=== PATIENT | male | born 1930 | race Caucasian/White ===

== ENCOUNTER 2016-12-24 16:22 | Emergency (ER) | payer OTHER ==
[~2016-12-24] VITALS: Ht 177.8 cm; Wt 63.1 kg
[~2016-12-24 16:22] MED LIST: AMLO-110 PO; ASPEC81 PO; CLR10 PO; COEN1CAP17 PO; FLNIN/ NAE; LEVO50TA6 PO; LOSA1TAB PO; METO25TA3 PO; MULT-188 PO; MULT-845 PO; OMEG10002 PO; RANI300T PO; ROSU20TA PO; WARF-246 PO; WARF-280 PO
[2016-12-24 16:34] VITALS: TEMP 36.9; Ht 177.8 cm; Wt 63.1 kg
--- NOTE | 2016-12-24 17:50 | EMERGENCY ROOM VISIT NOTE ---
History Report prepared by Nik: Ashwini Sunshine Under the Supervision of: Dr. Joe Gould D.O. First contact with patient: 17:16 Chief Complaint: GI ASSESSMENT Stated Complaint: COUGHING BLOOD Nursing Triage Summary: went to urgent care, was sent to the er "I have been spitting up blood since this morning." on coumadin for CHF. recent inr 2.9 History of Present Illness The patient is a 86 year old male who presents to the Emergency Room with complaints of constant hematochezia beginning this morning. The patient states that he has been congested and has been coughing up small amounts of blood throughout the day. He reports that he is on Warfarin for atrial fibrillation and has a history of CHF, GERD, prostate surgery, hernia surgery, and cholecystectomy. He notes that he has been more tired, short of breath, and congested. The patient denies any chest pain, fever, leg swelling, leg pain, weight loss, weight gain, history of smoking, history of detention, history of living with someone with TB. He reports that the congestion is in his chest and he has blood when he spits up his phlegm. He has not been on any new medications and notes that his Coumadin level was checked last week and was normal. The patient notes that he did bite his tongue recently but states that it is not bleeding. Source of History: patient Onset: this morning Position: other (global) Quality: other (coughing blood) Timing: constant Associated Symptoms: + SOB, No fevers, No chest pain Note: He notes that he has been more tired and congested. The patient denies any leg swelling, leg pain, weight loss, weight gain, history of smoking, history of detention, history of living with someone with TB. Review of Systems See HPI for pertinent positives & negatives. A total of 10 systems reviewed and were otherwise negative. Past Medical & Surgical Medical Problems: (1) Atrial flutter (2) CKD (chronic kidney disease), stage III (3) Diastolic heart failure (4) DM type 2 (diabetes mellitus, type 2) (5) Dyslipidemia (6) GERD (gastroesophageal reflux disease) (7) Hypertension (8) LBBB (left bundle branch block) Surgical Problems: (1) History of hernia repair (2) History of tonsillectomy Family History Hypertension Social History Smoking Status: Never Smoker Alcohol Use: none Marital Status: Housing Status: lives alone Occupation Status: retired Current/Historical Medications Scheduled Amlodipine (Norvasc), 5 MG PO DAILY Aspirin (Aspirin EC Low Dose), 81 MG PO DAILY Cephalexin Monohydrate (Keflex), 500 MG PO QID Coenzyme Q10 (Ubidecarenone) (Co Q 10), 100 MG PO DAILY@1200 Finasteride (Finasteride), 5 MG PO DAILY@1200 Fluticasone Propionate (Fluticasone Propionate), 2 SPRAYS TEREZA DAILY Ipratropium [place] (Nasal) (Ipratropium [place]), 2 SPRAYS TEREZA BID Levothyroxine Sodium (Levothyroxine Sodium), 50 MCG PO DAILY Losartan Potassium (Cozaar), 25 MG PO DAILY Metoprolol Succ (Toprol Xl) (Toprol-Xl), 12.5 MG PO DAILY Multiple Vitamins W/ Minerals (Centrum Silver Adult 50+), 1 TAB PO DAILY Multiple Vitamins W/ Minerals (Ocuvite), 1 TAB PO DAILY Omeprazole (Prilosec), 20 MG PO DAILY Ranitidine Hcl (Zantac), 300 MG PO QPM Rosuvastatin Calcium (Crestor), 20 MG PO QPM Warfarin Sod (Jantoven), 7.5 MG PO 5XWK Warfarin Sodium (Warfarin Sodium), 5 MG PO 2XWK Allergies Coded Allergies: Dust (Unverified Allergy, Unknown, UNKNOWN, 12/24/16) Grass (Unverified Allergy, Unknown, UNKNOWN, 12/24/16) Molds and Smuts (Unverified Allergy, Unknown, UNKNOWN, 12/24/16) Penicillins (Unverified Allergy, Unknown, UNKNOWN-HAPPENED WHEN HE WAS CHILD, 12/24/16) Physical Exam Vital Signs Date Time Temp Pulse Resp B/P (MAP) Pulse Ox O2 Delivery O2 Flow Rate FiO2 12/24/16 21:48 88 18 130/80 95 12/24/16 21:03 81 17 94 Room Air 12/24/16 19:23 83 18 167/95 96 Room Air 12/24/16 18:02 79 12/24/16 17:58 96 Room Air 12/24/16 17:58 96 Room Air 12/24/16 16:34 36.9 83 18 160/75 98 Room Air Physical Exam GENERAL: Patient is awake, alert, and in no acute distress. Patient is resting comfortably and showing no signs of anxiety EYES: The conjunctivae are clear. The pupils are round and reactive. EARS, NOSE, MOUTH AND THROAT: The nose is without any evidence of any deformity. Mucous membranes are moist tongue is midline, scant blood noted in oropharynx, no active bleeding noted NECK: The neck is nontender and supple. RESPIRATORY: Lung sounds diminished in the left lung field, rales at both bases CARDIOVASCULAR: Regular rate and rhythm noted there no murmurs rubs or gallops normal S1 normal S2 GASTROINTESTINAL: The abdomen is soft. Bowel sounds are present in all quadrants. Abdomen is nontender MUSCULOSKELETAL/EXTREMITIES: There is no evidence of gross deformity full range of motion is noted in the hips and shoulders SKIN: There is no obvious evidence of any rash. There are no petechiae, pallor or cyanosis noted. NEUROLOGIC: Patient is awake alert and oriented x3 Medical Decision & Procedures ER Provider Diagnostic Interpretation: Radiology results as stated below per my review and radiologist interpretation: CHEST ONE VIEW PORTABLE FINDINGS: There is no pneumothorax or pleural effusion. There is no evidence of pulmonary edema. Patient is rotated. Mild cardiomegaly is noted. Linear left midlung opacity suggests atelectasis. IMPRESSION: 1. No acute cardiopulmonary findings. 2. Mild cardiomegaly. Electronically signed by: Edward Grimaldo M.D. 12/24/2016 6:13 PM Dictated Date/Time: 12/24/2016 6:[address] ANGIOGRAPHY OF THE CHEST, PULMONARY EMBOLUS PROTOCOL FINDINGS: No pulmonary emboli are identified. The heart is moderately enlarged. Mild dilatation of the ascending aorta measuring 4 cm is unchanged since CT of July 10, 2016. Sensitivity for detection of dissection is diminished given suboptimal opacification of the thoracic aorta. There is no evidence for dissection on this exam. There is extensive coronary artery calcification. No pneumothorax or pleural effusion is present. There is mild interlobular septal thickening. Ground glass opacities suggest atelectasis. Bony thorax is unremarkable. There is a probable 1.4 cm cystic lesion within the pancreatic tail. IMPRESSION: 1. No pulmonary emboli identified. 2. Findings suggestive of mild pulmonary edema. 2. Moderate cardiomegaly. Stable mild dilatation of the ascending aorta. 3. Suspected 1.4 cm cystic lesion within the pancreatic tail. This may reflect a side branch IPMN. A follow-up pancreas protocol CT in 6 months to ensure stability is recommended. Electronically signed by: Edward Grimaldo M.D. 12/24/2016 7:20 PM Dictated Date/Time: 12/24/2016 7:[address] NECK WITHOUT INTRAVENOUS CONTRAST FINDINGS: The visualized brain parenchyma and orbits are unremarkable. Symmetric bilateral lingual tonsillar hypertrophy. The epiglottis and prevertebral soft tissues are normal in thickness. The parotid and submandibular glands are symmetric. No significant cervical lymphadenopathy. Minimal calcified plaque within the bilateral carotid bifurcations. Bilateral hypodense thyroid nodules which measure 1.1 cm on the left and 7 mm on the right. No pneumothorax. Calcified right pleural plaques. No suspicious lytic or blastic osseous lesions. Degenerative changes within the cervical spine. No airway compromise. The visualized trachea is widely patent. Of note, evaluation for mass within the neck is suboptimal due to the lack of intravenous contrast. IMPRESSION: 1. No masses or lymphadenopathy within the neck. 2. Symmetric bilateral lingual tonsillar hypertrophy. 3. Small bilateral thyroid nodules as described above. Electronically signed by: Avinash Sharif M.D. 12/24/2016 7:23 PM Dictated Date/Time: 12/24/2016 7:15 PM Laboratory Results 12/24/16 17:43 Red Blood Count 4.79, Mean Corpuscular Volume 92.1, Mean Corpuscular Hemoglobin 29.6, Mean Corpuscular Hemoglobin Concent 32.2, Mean Platelet Volume 10.7, Neutrophils (%) (Auto) 65.1, Lymphocytes (%) (Auto) 21.3, Monocytes (%) (Auto) 12.7, Eosinophils (%) (Auto) 0.7, Basophils (%) (Auto) 0.2, Neutrophils # (Auto ) 3.55, Lymphocytes # (Auto) 1.16, Monocytes # (Auto) 0.69, Eosinophils # (Auto ) 0.04, Basophils # (Auto) 0.01 12/24/16 17:43 Test 12/24/16 17:43 12/24/16 18:25 White Blood Count 5.45 K/uL (4.8-10.8) Red Blood Count 4.79 M/uL (4.7-6.1) Hemoglobin 14.2 g/dL (14.0-18.0) Hematocrit 44.1 % (42-52) Mean Corpuscular Volume 92.1 fL (80-100) Mean Corpuscular Hemoglobin 29.6 pg (25-34) Mean Corpuscular Hemoglobin Concent 32.2 g/dl (32-36) Platelet Count 158 K/uL (130-400) Mean Platelet Volume 10.7 fL (7.4-10.4) Neutrophils (%) (Auto) 65.1 % Lymphocytes (%) (Auto) 21.3 % Monocytes (%) (Auto) 12.7 % Eosinophils (%) (Auto) 0.7 % Basophils (%) (Auto) 0.2 % Neutrophils # (Auto) 3.55 K/uL (1.4-6.5) Lymphocytes # (Auto) 1.16 K/uL (1.2-3.4) Monocytes # (Auto) 0.69 K/uL (0.11-0.59) Eosinophils # (Auto) 0.04 K/uL (0-0.5) Basophils # (Auto) 0.01 K/uL (0-0.2) RDW Standard Deviation 49.8 fL (36.4-46.3) RDW Coefficient of Variation 14.7 % (11.5-14.5) Immature Granulocyte % (Auto) 0.0 % Immature Granulocyte # (Auto) 0.00 K/uL (0.00-0.02) Prothrombin Time 32.2 SECONDS (9.0-12.0) Prothromb Time International Ratio 2.9 (0.9-1.1) Activated Partial Thromboplast Time 39.5 SECONDS (21.0-31.0) Partial Thromboplastin Ratio 1.5 Anion Gap 6.0 mmol/L (3-11) Est Creatinine Clear Calc Drug Dose 43.0 ml/min Estimated GFR () 70.1 Estimated GFR (Non- 60.5 BUN/Creatinine Ratio 21.4 (10-20) Calcium Level 8.6 mg/dl (8.5-10.1) Total Bilirubin 0.6 mg/dl (0.2-1) Aspartate Amino Transf (AST/SGOT) 36 U/L (15-37) Alanine Aminotransferase (ALT/SGPT) 35 U/L (12-78) Alkaline Phosphatase 63 U/L (45-117) Total Creatine Kinase 165 U/L (39-308) Creatine Kinase MB 3.4 ng/ml (0.5-3.6) Creatine Kinase MB Ratio 2.1 (0-3.0) Troponin I 0.021 ng/ml (0-0.045) Pro-B-Type Natriuretic Peptide 4934 pg/ml (0-1800) Total Protein 7.7 gm/dl (6.4-8.2) Albumin 4.1 gm/dl (3.4-5.0) Globulin 3.6 gm/dl (2.5-4.0) Albumin/Globulin Ratio 1.1 (0.9-2) Chemistry Specimen Hemolysis Urine Color YELLOW Urine Appearance CLEAR (CLEAR) Urine pH 7.0 (4.5-7.5) Urine Specific Bone Gap 1.021 (1.000-1.030) Urine Protein 1+ (NEG) Urine Glucose (UA) NEG (NEG) Urine Ketones NEG (NEG) Urine Occult Blood NEG (NEG) Urine Nitrite NEG (NEG) Urine Bilirubin NEG (NEG) Urine Urobilinogen NEG (NEG) Urine Leukocyte Esterase NEG (NEG) Urine WBC (Auto) 0 /hpf (0-5) Urine RBC (Auto) 0-4 /hpf (0-4) Urine Hyaline Casts (Auto) 0 /lpf (0-5) Urine Epithelial Cells (Auto) 0-5 /lpf (0-5) Urine Bacteria (Auto) NEG (NEG) Laboratory results per my review. Medications Administered Medications (Trade) Dose Ordered Sig/Anthony Route Start Time Stop Time Status Last Admin Dose Admin Cephalexin Monohydrate (Keflex 500MG Home Pack) 1 homepack NOW ONCE PO 12/24/16 21:15 12/24/16 21:16 DC 12/24/16 21:46 1 HOMEPACK Cephalexin Monohydrate (Keflex Cap) 500 mg NOW ONCE PO 12/24/16 21:15 12/24/16 21:16 DC 12/24/16 21:46 500 MG Tip of the tongue Total length: Less than 0.5 cm Complexity: Simple Verbal consent was obtained after the risks and benefits were explained, including but not limited to bleeding, scarring, infection, pain, and bone/joint /nerve damage. At this time, the risks of the procedure are less than the risks of NOT performing the procedure. The target area was anesthetized with 0.5 ml of 1% lidocaine with epinephrine. Copious irrigation was performed using normal saline solution. Debridement was not performed. The wound edges were approximated using 2, 6-0 simple interrupted absorbable sutures. Hemostasis and excellent approximation was achieved. No complications and the patient tolerated the procedure well. ECG Indication: weakness Rate (beats per minute): 90 Rhythm: sinus rhythm Findings: LBBB, PVC (frequent) Comparison ECG Date: 03/28/16 Change: no significant change ED Course 1715: The patient was evaluated in room C6. A complete history and physical examination were performed. 2029: Lidocaine/Epinephrine 20ml INFIL. 2106: I reevaluated and updated the patient. 2114: Keflex Cap 500mg PO, Keflex 500mg Home Pack 1 homepack PO. 2152: Upon reevaluation, the patient is doing well. I discussed the results and treatment plan with the patient. He verbalized agreement of the treatment plan. The patient was discharged home. Medical Decision Differential diagnosis: Etiologies such as infections, reactive airway disease, pneumonia, pneumothorax , COPD, CHF, cardiac ischemia, pulmonary embolism, musculoskeletal, gastrointestinal, as well as others were entertained. Nursing notes reviewed. Additional history is obtained from the patient's daughter. The patient is an 86-year-old male who presented to the emergency department for an evaluation of hemoptysis. The patient states that he was coughing up blood and he showed me on multiple occasions that he was bringing up sputum which appeared blood tinged but also chris blood at times. The patient had some nasal congestion as well as a sore throat but no definite source of bleeding was noted on direct observation however he had an area over the tip of his tongue which appeared to be oozing at times. The patient was seen at a [facility] and was sent to the emergency department for further evaluation of hemoptysis. Testing was obtained to ensure there is no source of bleeding in his oropharynx or an abnormality in his chest such as a pulmonary embolism or mass that was causing the bleeding. He had no risk factors for tuberculosis but I could identify. I discussed the patient's laboratory radiographic studies with him however on subsequent reevaluation I was able to notice that this area on his tongue appeared to be bleeding more. With direct pressure it did not seem to stop bleeding. This reason a small absorbable suture was placed in the laceration which appeared to stop the bleeding. I discussed the patient's laboratory radiographic studies with his daughter. He was encouraged to continue all medications as prescribed and follow-up with his doctor for reevaluation. He was also started on an antibiotic because of the placement of the oral sutures. He was also encouraged return to the emergency apartment immediately if symptoms change worsen or the need arises. Medication Reconcilliation Current Medication List: was personally reviewed by me Blood Pressure Screening Patient's blood pressure: Elevated blood pressure Blood pressure disposition: Elevated BP felt to be situational Impression Primary Impression: Tongue laceration Additional Impressions: Chest congestion rule out hemoptysis Scribe Attestation The scribe's documentation has been prepared under my direction and personally reviewed by me in its entirety. I confirm that the note above accurately reflects all work, treatment, procedures, and medical decision making performed by me. Departure Information Dispostion Home / Self-Care Prescriptions Cephalexin Monohydrate (KEFLEX) 500 Mg Cap 500 MG PO QID, #20 CAP Prov: Joe Gould, DO 12/24/16 Referrals Laura Mcmahon M.D. (PCP) Forms HOME CARE DOCUMENTATION FORM, IMPORTANT VISIT INFORMATION Patient Instructions ED Laceration Mouth, My [facility] Additional Instructions Continue all medications as prescribed. Continue to use Tylenol as directed for pain. Follow-up with your family tomorrow scheduled. Problem Qualifiers Primary Impression: Tongue laceration Encounter type: initial encounter Qualified Codes: S01.512A - Laceration without foreign body of oral cavity, initial encounter
[2016-12-24] MEDS ORDERED: LOSA1TAB PO (17:55)
[2016-12-24] MEDS ORDERED: WARF7.5T4 PO (17:57)
[2016-12-24 17:58] VITALS: O2SAT 96
[2016-12-24 17:58] LABS: BASO % 0.2 %; BASO ABS # 0.01 K/uL (0-0.2); COMPLETE YES; EOS % 0.7 %; HEMATOCRIT 44.1 % (42-52); LYMPH % 21.3 %; LYMPH ABS # 1.16 K/uL (1.2-3.4); MEAN CELL VOLUME 92.1 fL (80-100); MEAN CORPUSCULAR HEMOGLOBIN 29.6 pg (25-34); MEAN CORPUSCULAR HGB CONC 32.2 g/dl (32-36); MEAN PLATELET VOLUME 10.7 fL (7.4-10.4); MONO % 12.7 %; NEUT % 65.1 %; PLATELET COUNT 158 K/uL (130-400); RED BLOOD COUNT 4.79 M/uL (4.7-6.1); WHITE BLOOD COUNT 5.45 K/uL (4.8-10.8)
[2016-12-24] MEDS ORDERED: PRLSR20 PO (18:02)
[2016-12-24] MEDS ORDERED: IPRA0.03 NAE (18:03)
[2016-12-24] MEDS ORDERED: PRS5 PO (18:04)
[2016-12-24 18:13] LABS: INR 2.9 (0.9-1.1); PARTIAL THROMBOPLASTIN RATIO 1.5; PROTHROMBIN TIME (PATIENT) 32.2 SECONDS (9.0-12.0)
--- NOTE | 2016-12-24 18:14 | DIAGNOSTIC IMAGING REPORT ---
CHEST ONE VIEW PORTABLE CLINICAL HISTORY: Respiratory distress. Dyspnea. COMPARISON STUDY: Chest CT July 11, 2015 and chest radiograph March 28, 2016. FINDINGS: There is no pneumothorax or pleural effusion. There is no evidence of pulmonary edema. Patient is rotated. Mild cardiomegaly is noted. Linear left midlung opacity suggests atelectasis. IMPRESSION: 1. No acute cardiopulmonary findings. 2. Mild cardiomegaly. Electronically signed by: Edward Grimaldo M.D. 12/24/2016 6:13 PM Dictated Date/Time: 12/24/2016 6:12 PM
[2016-12-24 18:25] LABS: ALB/GLOB RATIO 1.1 (0.9-2); BUN/CREATININE RATIO 21.4 (10-20); CALCIUM 8.6 mg/dl (8.5-10.1); CKMB/CK RATIO 2.1 (0-3.0); CREATININE 1.1 mg/dl (0.60-1.40); POTASSIUM 4.2 mmol/L (3.5-5.1)
[2016-12-24] MEDS ORDERED: OPTIRAY 320 IV PRN (18:45)
[2016-12-24 18:50] LABS: URINE APPEARANCE CLEAR (CLEAR); URINE BILIRUBIN NEG (NEG); URINE COLOR YELLOW; URINE EPITHELIAL CELL AUTO 0-5 /lpf (0-5); URINE NITRITE NEG (NEG); URINE SPECIFIC GRAVITY 1.021 (1.000-1.030); UROBILINOGEN NEG (NEG)
[2016-12-24 18:52] LABS: MANUAL MICROSCOPIC REQUIRED? NO; REVIEW REQ? NO
--- NOTE | 2016-12-24 19:22 | DIAGNOSTIC IMAGING REPORT ---
CT ANGIOGRAPHY OF THE CHEST, PULMONARY EMBOLUS PROTOCOL CLINICAL HISTORY: Hemoptysis. Sore throat. COMPARISON STUDY: Chest CT July 11, 2015. TECHNIQUE: Following IV administration of 119 mL of Optiray-320, helical axial images of the chest were obtained utilizing the pulmonary embolus protocol. Maximal intensity projections and sagittal and coronal reformats were viewed on an independent 3D workstation. IV contrast was administered without complication. A dose lowering technique was utilized adhering to the principles of ALARA. FINDINGS: No pulmonary emboli are identified. The heart is moderately enlarged. Mild dilatation of the ascending aorta measuring 4 cm is unchanged since CT of July 10, 2016. Sensitivity for detection of dissection is diminished given suboptimal opacification of the thoracic aorta. There is no evidence for dissection on this exam. There is extensive coronary artery calcification. No pneumothorax or pleural effusion is present. There is mild interlobular septal thickening. Ground glass opacities suggest atelectasis. Bony thorax is unremarkable. There is a probable 1.4 cm cystic lesion within the pancreatic tail. IMPRESSION: 1. No pulmonary emboli identified. 2. Findings suggestive of mild pulmonary edema. 2. Moderate cardiomegaly. Stable mild dilatation of the ascending aorta. 3. Suspected 1.4 cm cystic lesion within the pancreatic tail. This may reflect a side branch IPMN. A follow-up pancreas protocol CT in 6 months to ensure stability is recommended. Electronically signed by: Edward Grimaldo M.D. 12/24/2016 7:20 PM Dictated Date/Time: 12/24/2016 7:09 PM
--- NOTE | 2016-12-24 19:24 | DIAGNOSTIC IMAGING REPORT ---
CT NECK WITHOUT INTRAVENOUS CONTRAST HISTORY: sore throat and possible bleeding TECHNIQUE: Multiaxial CT images of the neck were performed without the use of intravenous contrast. COMPARISON STUDY: None. FINDINGS: The visualized brain parenchyma and orbits are unremarkable. Symmetric bilateral lingual tonsillar hypertrophy. The epiglottis and prevertebral soft tissues are normal in thickness. The parotid and submandibular glands are symmetric. No significant cervical lymphadenopathy. Minimal calcified plaque within the bilateral carotid bifurcations. Bilateral hypodense thyroid nodules which measure 1.1 cm on the left and 7 mm on the right. No pneumothorax. Calcified right pleural plaques. No suspicious lytic or blastic osseous lesions. Degenerative changes within the cervical spine. No airway compromise. The visualized trachea is widely patent. Of note, evaluation for mass within the neck is suboptimal due to the lack of intravenous contrast. IMPRESSION: 1. No masses or lymphadenopathy within the neck. 2. Symmetric bilateral lingual tonsillar hypertrophy. 3. Small bilateral thyroid nodules as described above. Electronically signed by: Avinash Sharif M.D. 12/24/2016 7:23 PM Dictated Date/Time: 12/24/2016 7:15 PM
[2016-12-24] MEDS ORDERED: LIDOCAINE/EPINEPHRINE 1% 20 ML VIAL INFIL ONE (20:30)
[2016-12-24] MEDS ORDERED: CEPHALEXIN 500MG HOME PACK 1 EA BTL PO ONE (21:15)
[2016-12-24] MEDS ORDERED: CEPHALEXIN MONOHYDRATE 250 MG CAP PO ONE (21:15)
[2016-12-24] MEDS ORDERED: CEPH500C2 PO (21:23)
[2016-12-24 21:48] VITALS: BP 130/80; PULSE 88; O2SAT 95
== END 2016-12-24 21:49 | disposition home or self-care (01) ==
LOC: C.EDB 16:24 → C.EDC 21:49
DX: S01.512A Laceration without foreign body of oral cavity, initial encounter (principal); X58.XXXA Exposure to other specified factors, initial encounter; R09.89 Other specified symptoms and signs involving the circulatory and respiratory systems; R06.02 Shortness of breath; E78.5 Hyperlipidemia, unspecified; K21.9 Gastro-esophageal reflux disease without esophagitis; I12.9 Hypertensive chronic kidney disease with stage 1 through stage 4 chronic kidney disease, or unspecified chronic kidney disease; E11.22 Type 2 diabetes mellitus with diabetic chronic kidney disease; N18.3 Chronic kidney disease, stage 3 (moderate); I48.91 Unspecified atrial fibrillation; Z90.49 Acquired absence of other specified parts of digestive tract; Z90.89 Acquired absence of other organs; Z98.890 Other specified postprocedural states; Z79.01 Long term (current) use of anticoagulants; Z79.82 Long term (current) use of aspirin; Z79.899 Other long term (current) drug therapy

== ENCOUNTER 2020-03-30 12:56 | Inpatient (IN) ==
[2020-03-30 13:34] LABS: Hematocrit (blood only) 42.6 % (42-52); Hemoglobin 14.1 g/dL (14.0-18.0); Immature Granulocytes # (auto) 0.01 K/uL (0.00-0.02); Immature Granulocytes % (auto) 0.1 %; Lymphocytes % (auto) 12.3 %; Mean Corpuscular Hemoglobin 30.3 pg (25-34); Mean Corpuscular Hgb Conc 33.1 g/dL (32-36); Mean Corpuscular Volume 91.4 fL (80-100); Mean Platelet Volume 10.4 fL (7.4-10.4); Monocytes # (auto) 0.33 K/uL (0.11-0.59); Monocytes % (auto) 4.5 %; Neutrophils # (auto) 6.05 K/uL (1.4-6.5); Neutrophils % (auto) 83.1 %; Platelet Count 122 K/uL (130-400); RDW Coefficient of Variation 14.7 % (11.5-14.5); RDW Standard Deviation 49.4 fL (36.4-46.3); Red Blood Count 4.66 M/uL (4.7-6.1); White Blood Count 7.29 K/uL (4.8-10.8)
[2020-03-30 13:44] LABS: INR 1.7 (0.9-1.1); Partial Thromboplastin Ratio 1.4; Partial Thromboplastin Time 38.6 Seconds (21.0-31.0); Prothrombin Time 17.5 Seconds (9.0-12.0)
--- NOTE | 2020-03-30 13:51 | Emergency Department Note ---
History of Present Illness General Chief complaint: Weakness Time Seen by Provider: 03/30/20 13:22 History of Present Illness Provider complaint: Weakness Covid positive Onset (ago): day(s) 2 Location: abdomen 89-year-old male presents emergency department for weakness. He states he tested positive for Covid on Friday. He states yesterday he started feeling very weak and felt like his hands were shaking so he drank some juice which he lped. He states he got weak again and fell yesterday. He is currently reporting pain in his left lower quadrant. He states today he felt like he was going to pass out again to drink some juice which again helped. Patient denies any headache. Patient is on Coumadin. Home Medications Medication Instructions Recorded Confirmed Type aspirin [Aspirin Low Dose] 81 mg PO QAM 03/12/18 03/30/20 History coenzyme Q10 100 mg PO QDL 03/12/18 03/30/20 History eplerenone [Inspra] 12.5 mg PO QAM 03/12/18 03/30/20 History furosemide 20 mg PO QAM 03/12/18 03/30/20 History levothyroxine 50 mcg PO DAILY 03/12/18 03/30/20 History losartan 25 mg PO BID 03/12/18 03/30/20 History rosuvastatin 40 mg PO QDD 03/12/18 03/30/20 History warfarin 5 mg PO SUMOWETHFR 03/12/18 03/30/20 History warfarin 7.5 mg PO TUSA 03/12/18 03/30/20 History C,E,zinc,copper [id number] 1 cap PO QAM 10/05/18 03/30/20 History [Ocuvite Adult 50 Plus] amlodipine 5 mg PO QAM 10/05/18 03/30/20 History finasteride 5 mg PO QDL 10/05/18 03/30/20 History isosorbide dinitrate 10 mg PO BID 10/05/18 03/30/20 History metoprolol succinate 12.5 mg PO QDD 10/05/18 03/30/20 History omega 8-eji-gta-fish oil [Fish Oil] 1 cap PO QDL 10/05/18 03/30/20 History fluticasone furoate [Arnuity 1 inh INHALATION DAILY 03/30/20 03/30/20 History Ellipta] loratadine 10 mg PO DAILY PRN 03/30/20 03/30/20 History quetiapine 25 mg PO HS 03/30/20 03/30/20 History Allergies Allergy/AdvReac Type Severity Reaction Status Date / Time grass pollen-perennial rye, Allergy Unknown UNKNOWN Unverified 03/30/20 13:54 standar mold Allergy Unknown UNKNOWN Unverified 03/30/20 13:54 Penicillins Allergy Unknown UNKNOWN-HAPPENED Unverified 03/30/20 13:54 WHEN HE WAS CHILD Dust Allergy Unknown UNKNOWN Uncoded 03/30/20 13:54 Past Med/Surg History Medical History (Updated 03/30/20 @ 20:09 by Chandana Keith) Atrial flutter CHF (congestive heart failure) Dyslipidemia GERD (gastroesophageal reflux disease) Hypertension LBBB (left bundle branch block) Pneumonia T2DM (type 2 diabetes mellitus) Surgical History History of hernia repair "02/18" History of tonsillectomy Family History Father Myocardial infarction, Onset Age: 86 Diabetes Mother Diabetes Social History (Updated 03/30/20 @ 17:11 by Mirella Romaon PA-C) Smoking Status: Never smoker Second Hand Exposure: No; Hx Alcohol Use: Yes Alcohol type: beer and wine Alcohol Intake Frequency: Monthly or Less Hx Substance Use: No Preferred Language: Luxembourger Communication Ability: Effective Prefitter Doors Required: No Beliefs That Will Affect Care: None marital status: / Current Living Situation: Alone Feels Safe at Home: Yes Assistive Devices: Walker Review of Systems A total of 10 systems reviewed and were otherwise negative Physical Exam Vital Signs Vital Signs - 24 hr 03/30/20 13:11 03/30/20 13:29 03/30/20 13:48 Temperature 36.8 C Temperature Source Oral Pulse Rate 85 Pulse Rate from SpO2 Sensor Respiratory Rate 20 Respiratory Effort / Characteristics Non-Labored Blood Pressure 179/85 H Blood Pressure Mean 116 Pulse Oximetry 97 94 Oxygen Delivery Method Room Air Room Air Sepsis Recent Fever Within 48 Hours Yes Sepsis New/Unexplained Change in Mental Status No Sepsis Action Taken by Nursing No Action Required 03/30/20 13:49 03/30/20 14:00 03/30/20 14:01 Temperature Temperature Source Pulse Rate 89 93 H 85 Pulse Rate from SpO2 Sensor 80 86 Respiratory Rate 19 21 22 Respiratory Effort / Characteristics Blood Pressure 133/117 H Blood Pressure Mean 123 Pulse Oximetry 92 97 Oxygen Delivery Method Sepsis Recent Fever Within 48 Hours Sepsis New/Unexplained Change in Mental Status Sepsis Action Taken by Nursing 03/30/20 14:02 03/30/20 14:15 03/30/20 14:30 Temperature Temperature Source Pulse Rate 84 84 Pulse Rate from SpO2 Sensor 83 87 80 Respiratory Rate 24 26 H Respiratory Effort / Characteristics Blood Pressure Blood Pressure Mean Pulse Oximetry 97 92 96 Oxygen Delivery Method Sepsis Recent Fever Within 48 Hours Sepsis New/Unexplained Change in Mental Status Sepsis Action Taken by Nursing 03/30/20 14:45 03/30/20 14:48 03/30/20 15:56 Temperature Temperature Source Pulse Rate 85 89 Pulse Rate from SpO2 Sensor 79 Respiratory Rate 27 H 18 23 Respiratory Effort / Characteristics Non-Labored Blood Pressure 180/69 H Blood Pressure Mean 118 Pulse Oximetry 94 98 96 Oxygen Delivery Method Room Air Sepsis Recent Fever Within 48 Hours Sepsis New/Unexplained Change in Mental Status Sepsis Action Taken by Nursing 03/30/20 16:00 03/30/20 16:30 Temperature Temperature Source Pulse Rate 88 89 Pulse Rate from SpO2 Sensor Respiratory Rate 20 24 Respiratory Effort / Characteristics Blood Pressure 158/82 H 159/80 H Blood Pressure Mean 115 103 Pulse Oximetry 94 94 Oxygen Delivery Method Sepsis Recent Fever Within 48 Hours Sepsis New/Unexplained Change in Mental Status Sepsis Action Taken by Nursing Physical Exam GENERAL: He is oriented to person, place, and time. He appears well-developed and well-nourished. He does not appear distressed. HENT: Exam performed. - Head: Normocephalic and atraumatic. - Right Ear: External ear normal. No mastoid tenderness. - Left Ear: External ear normal. No mastoid tenderness. EYES: Conjunctivae and EOM are normal. Pupils are equal, round, and reactive to light. Right eye exhibits no discharge. Left eye exhibits no discharge. No scleral icterus. NECK: Normal range of motion. Neck supple. No JVD present. No spinous process tenderness present. No carotid bruit present. No rigidity. No tracheal deviation and normal range of motion present. No Brudzinski's sign and no Kernig's sign noted. CV: Normal rate, regular rhythm, normal heart sounds and intact distal pulses. There is no peripheral edema. Palpable radial pulses bue. PULM/CHEST: Effort normal and breath sounds normal. No respiratory distress. No stridor. He has no wheezes. He has no rales. - Chest Wall: He exhibits no tenderness. ABD: The abdomen is soft. Bowel sounds are normal. He has no distension. No mass is present. There is tenderness to palpation of the left lower quadrant. There is no rebound, no guarding, no Ny's sign and no tenderness at McBurney's point. Rovsig negative. MUSC/SKEL: Normal range of motion. There is no peripheral edema, tenderness or deformity. LYMPH: No cervical adenopathy. NEURO: He is alert and oriented to person, place, and time. He has normal strength. No cranial nerve deficit or sensory deficit. Coordination and gait normal. GCS eye subscore is 4. GCS verbal subscore is 5. GCS motor subscore is 6. Cerebellar tests wnl. SKIN: Skin is warm and dry. He is not diaphoretic. PSYCH: He has a normal mood and affect. Behavior is normal. Judgment and thought content normal. Course Course 1322: The patient was evaluated in room C9. A complete history and physical exam was performed. Patient was seen in full airborne precautions. Patient was seen in N95's, gloves, gowns, face shield by myself and staff. Cardiac monitoring: An order was placed for continuous cardiac monitoring. The monitor shows a rate of 80 with sinus rhythm 1621: Vital signs stable. Patient is COVID-19 positive at outside facility. Labs show an elevated troponin of 0.092. Patient's INR was subtherapeutic. CTA of the chest was negative for PE. There are groundglass opacities within the right middle and right lower lobe. CT of the head, C-spine, and abdomen pelvis are within normal limits. Given the patient's COVID-19 positive and elevated troponin with the established left bundle branch block, the patient will be admitted to the [facility] team. Hospitalist Mirella Sparrow stated to admit to Dr. Chambers. Administered Medications Ioversol (Optiray 320 125ml) 120 ml IV ONCE ONE Stop: 03/30/20 15:42 Last Admin: 03/30/20 15:42 Dose: 120 ml Documented by: [id number] Discontinued Medications Sodium Chloride (Nss) 500 mls @ 125 mls/hr IV .Q4H CORBY Stop: 04/29/20 13:29 Last Infusion: 03/30/20 19:01 Dose: 0 mls/hr Documented by: [id number] Admin: 03/30/20 14:49 Dose: 125 mls/hr Documented by: [id number] Medical Decision Making Laboratory Data Result diagrams: 03/30/20 13:20 03/30/20 13:20 Lab Results 03/30/20 03/30/20 03/30/20 Range/Units 13:20 13:20 13:20 WBC 7.29 (4.8-10.8) K/uL RBC 4.66 L (4.7-6.1) M/uL Hgb 14.1 (14.0-18.0) g/dL Hct 42.6 (42-52) % MCV 91.4 (80-100) fL MCH 30.3 (25-34) pg MCHC 33.1 (32-36) g/dL RDW Std Deviation 49.4 H (36.4-46.3) fL RDW Coeff of Naun 14.7 H (11.5-14.5) % Plt Count 122 L (130-400) K/uL MPV 10.4 (7.4-10.4) fL Immature Gran % (Auto) 0.1 % Neut % (Auto) 83.1 % Lymph % (Auto) 12.3 % [place] % (Auto) 4.5 % Eos % (Auto) 0.0 % Baso % (Auto) 0.0 % Neut # (Auto) 6.05 (1.4-6.5) K/uL Lymph # (Auto) 0.90 L (1.2-3.4) K/uL [place] # (Auto) 0.33 (0.11-0.59) K/uL Eos # (Auto) 0.00 (0-0.5) K/uL Baso # (Auto) 0.00 (0-0.2) K/uL Immature Gran # (Auto) 0.01 (0.00-0.02) K/uL PT 17.5 H (9.0-12.0) Seconds INR 1.7 H (0.9-1.1) APTT 38.6 H (21.0-31.0) Seconds PTT Ratio 1.4 VBG pH (7.36-7.41) VBG pCO2 (38-50) mmHg VBG pO2 mmHg VBG HCO3 mmol/L VBG O2 Saturation % VBG Base Excess mEq/L Barometric Pressure mm/Hg Sodium 137 (136-145) mmol/L Potassium 3.6 (3.5-5.1) mmol/L Chloride 102 (98-107) mmol/L Carbon Dioxide 27 (21-32) mmol/L Anion Gap 8.0 (3-11) BUN 36 H (7-18) mg/dl Creatinine 1.35 (0.6-1.4) mg/dl Est Cr Clr Drug Dosing 33.5 ml/min Est GFR ( Amer) 53.6 Est GFR (Non-Af Amer) 46.2 BUN/Creatinine Ratio 26.5 H (10-20) Glucose 114 H (70-99) mg/dl Lactate (0.4-2.0) mmol/L Calcium 8.8 (8.5-10.1) mg/dl Magnesium 2.5 H (1.8-2.4) mg/dl Total Bilirubin 0.7 (0.2-1) mg/dl AST 35 (15-37) U/L ALT 32 (12-78) U/L Alkaline Phosphatase 55 (45-117) U/L Troponin I 0.092 H* (0-0.045) ng/ml Total Protein 8.2 (6.4-8.2) gm/dl Albumin 4.1 (3.4-5.0) gm/dl Globulin 4.1 H (2.5-4.0) gm/dl Albumin/Globulin Ratio 1.0 (0.9-2) Lipase 168 (73-393) U/L Procalcitonin (0-0.5) ng/ml Urine Color Urine Appearance (Clear) Urine pH (4.5-7.5) Ur Specific Nora (1.000-1.030) Urine Protein (Negative) Urine Glucose (UA) (Negative) Urine Ketones (Negative) Urine Blood (Negative) Urine Nitrite (Negative) Urine Bilirubin (Negative) Urine Urobilinogen (Negative) Ur Leukocyte Esterase (Negative) Urine WBC (Auto) (0-5) /hpf Urine RBC (Auto) (0-4) /hpf U Hyaline Cast (Auto) (0-5) /lpf U Epithel Cells (Auto) (0-5) /lpf Urine Bacteria (Auto) (Negative) 03/30/20 03/30/20 03/30/20 Range/Units 13:20 13:20 13:58 WBC (4.8-10.8) K/uL RBC (4.7-6.1) M/uL Hgb (14.0-18.0) g/dL Hct (42-52) % MCV (80-100) fL MCH (25-34) pg MCHC (32-36) g/dL RDW Std Deviation (36.4-46.3) fL RDW Coeff of Naun (11.5-14.5) % Plt Count (130-400) K/uL MPV (7.4-10.4) fL Immature Gran % (Auto) % Neut % (Auto) % Lymph % (Auto) % [place] % (Auto) % Eos % (Auto) % Baso % (Auto) % Neut # (Auto) (1.4-6.5) K/uL Lymph # (Auto) (1.2-3.4) K/uL [place] # (Auto) (0.11-0.59) K/uL Eos # (Auto) (0-0.5) K/uL Baso # (Auto) (0-0.2) K/uL Immature Gran # (Auto) (0.00-0.02) K/uL PT (9.0-12.0) Seconds INR (0.9-1.1) APTT (21.0-31.0) Seconds PTT Ratio VBG pH (7.36-7.41) VBG pCO2 (38-50) mmHg VBG pO2 mmHg VBG HCO3 mmol/L VBG O2 Saturation % VBG Base Excess mEq/L Barometric Pressure mm/Hg Sodium (136-145) mmol/L Potassium (3.5-5.1) mmol/L Chloride (98-107) mmol/L Carbon Dioxide (21-32) mmol/L Anion Gap (3-11) BUN (7-18) mg/dl Creatinine (0.6-1.4) mg/dl Est Cr Clr Drug Dosing ml/min Est GFR ( Amer) Est GFR (Non-Af Amer) BUN/Creatinine Ratio (10-20) Glucose (70-99) mg/dl Lactate 1.6 (0.4-2.0) mmol/L Calcium (8.5-10.1) mg/dl Magnesium (1.8-2.4) mg/dl Total Bilirubin (0.2-1) mg/dl AST (15-37) U/L ALT (12-78) U/L Alkaline Phosphatase (45-117) U/L Troponin I (0-0.045) ng/ml Total Protein (6.4-8.2) gm/dl Albumin (3.4-5.0) gm/dl Globulin (2.5-4.0) gm/dl Albumin/Globulin Ratio (0.9-2) Lipase (73-393) U/L Procalcitonin < 0.05 (0-0.5) ng/ml Urine Color Yellow Urine Appearance Clear (Clear) Urine pH 5.0 (4.5-7.5) Ur Specific Nora 1.019 (1.000-1.030) Urine Protein 1+ H (Negative) Urine Glucose (UA) Negative (Negative) Urine Ketones Negative (Negative) Urine Blood Trace H (Negative) Urine Nitrite Negative (Negative) Urine Bilirubin Negative (Negative) Urine Urobilinogen Negative (Negative) Ur Leukocyte Esterase Negative (Negative) Urine WBC (Auto) 1-5 (0-5) /hpf Urine RBC (Auto) 0-4 (0-4) /hpf U Hyaline Cast (Auto) 10-30 H (0-5) /lpf U Epithel Cells (Auto) 20-30 H (0-5) /lpf Urine Bacteria (Auto) Negative (Negative) 03/30/20 Range/Units 13:58 WBC (4.8-10.8) K/uL RBC (4.7-6.1) M/uL Hgb (14.0-18.0) g/dL Hct (42-52) % MCV (80-100) fL MCH (25-34) pg MCHC (32-36) g/dL RDW Std Deviation (36.4-46.3) fL RDW Coeff of Naun (11.5-14.5) % Plt Count (130-400) K/uL MPV (7.4-10.4) fL Immature Gran % (Auto) % Neut % (Auto) % Lymph % (Auto) % [place] % (Auto) % Eos % (Auto) % Baso % (Auto) % Neut # (Auto) (1.4-6.5) K/uL Lymph # (Auto) (1.2-3.4) K/uL [place] # (Auto) (0.11-0.59) K/uL Eos # (Auto) (0-0.5) K/uL Baso # (Auto) (0-0.2) K/uL Immature Gran # (Auto) (0.00-0.02) K/uL PT (9.0-12.0) Seconds INR (0.9-1.1) APTT (21.0-31.0) Seconds PTT Ratio VBG pH 7.39 (7.36-7.41) VBG pCO2 48 (38-50) mmHg VBG pO2 23 mmHg VBG HCO3 28 mmol/L VBG O2 Saturation < 60.0 % VBG Base Excess 2.4 mEq/L Barometric Pressure 734.1 mm/Hg Sodium (136-145) mmol/L Potassium (3.5-5.1) mmol/L Chloride (98-107) mmol/L Carbon Dioxide (21-32) mmol/L Anion Gap (3-11) BUN (7-18) mg/dl Creatinine (0.6-1.4) mg/dl Est Cr Clr Drug Dosing ml/min Est GFR ( Amer) Est GFR (Non-Af Amer) BUN/Creatinine Ratio (10-20) Glucose (70-99) mg/dl Lactate (0.4-2.0) mmol/L Calcium (8.5-10.1) mg/dl Magnesium (1.8-2.4) mg/dl Total Bilirubin (0.2-1) mg/dl AST (15-37) U/L ALT (12-78) U/L Alkaline Phosphatase (45-117) U/L Troponin I (0-0.045) ng/ml Total Protein (6.4-8.2) gm/dl Albumin (3.4-5.0) gm/dl Globulin (2.5-4.0) gm/dl Albumin/Globulin Ratio (0.9-2) Lipase (73-393) U/L Procalcitonin (0-0.5) ng/ml Urine Color Urine Appearance (Clear) Urine pH (4.5-7.5) Ur Specific Nora (1.000-1.030) Urine Protein (Negative) Urine Glucose (UA) (Negative) Urine Ketones (Negative) Urine Blood (Negative) Urine Nitrite (Negative) Urine Bilirubin (Negative) Urine Urobilinogen (Negative) Ur Leukocyte Esterase (Negative) Urine WBC (Auto) (0-5) /hpf Urine RBC (Auto) (0-4) /hpf U Hyaline Cast (Auto) (0-5) /lpf U Epithel Cells (Auto) (0-5) /lpf Urine Bacteria (Auto) (Negative) Imaging Data Radiologist's Impression: CHEST CTA for PULMONARY ARTERIES CT DOSE: HISTORY: Covid positive. Shortness of breath. Fall. TECHNIQUE: Multiaxial CT images of the chest were performed following the intravenous administration of contrast to evaluate the pulmonary arteries. Maximal intensity projection images were also obtained. A dose lowering technique was utilized adhering to the principles of ALARA. COMPARISON STUDY: Chest CTA 12/24/2016. FINDINGS: The ascending thoracic aorta measures up to 3.9 cm in diameter. No evidence for an aortic dissection. Mild calcified plaque within the thoracic aorta. The heart remains moderately enlarged. No pleural or pericardial effusions. Bilateral lower lobe subsegmental pulmonary arteries are nondiagnostic due to motion artifact. However, the remaining pulmonary arteries show no filling defects to suggest pulmonary embolus. No mediastinal hilar lymphadenopathy. Normal esophagus. Limited views of the upper abdomen demonstrate a normal liver, spleen, and adrenal glands. No pneumothorax. The central airways are patent. Mild respiratory motion artifact. Linear densities at the base of the left lower lobe favor atelectasis. Small patchy groundglass airspace opacities within the base of the right middle lobe and right lower lobe. This could represent a developing pneumonia or dependent change. IMPRESSION: 1. No evidence for pulmonary embolus with limitations as described above. 2. Moderate cardiomegaly, unchanged. 3. Small patchy groundglass airspace opacities within the base of the right middle lobe and right lower lobe. This could represent a developing pneumonia or dependent change. ACT 112: Negative or not required by law. Electronically signed by: Avinash Sharif M.D. 03/30/2020 4:05 PM Dictated: 03/30/20 1556Transcribed: 03/30/[address] DOSE: HISTORY: fall TECHNIQUE: Multiaxial CT images of the head were performed without the use of intravenous contrast. Automated exposure control was utilized for this study. A dose lowering technique was utilized adhering to the principles of ALARA. Comparison: Head CT 11:30 T. Findings: The paranasal sinuses and mastoid air cells are clear. The calvarium and skull base are intact. There is no mass, hematoma, midline shift, acute infarct. White matter hypodensity is nonspecific but suggestive of microvascular ischemic change. The ventricles and sulci demonstrate mild age-related involutional changes. Evidence for prior bilateral lens removal. 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 Impression: No significant change compared to the prior study. No acute intracranial abnormality. ACT 112: Negative or not required by law. Electronically signed by: Avinash Sharif M.D. 03/30/2020 3:55 PM Dictated: 03/30/20 1549Transcribed: 03/30/[address] SCAN OF THE CERVICAL SPINE CLINICAL HISTORY: Fall. COMPARISON STUDY: CT angiogram of the neck dated 03/12/2018. TECHNIQUE: CT scan of the cervical spine is performed from the skull base to the upper thoracic spine. Images are reviewed in the axial, sagittal, and coronal planes. IV contrast was not administered for this examination. A dose lowering technique was utilized adhering to the principles of ALARA. CT DOSE: 1491.62 mGy.cm FINDINGS: Skeletal structures: The skeletal structures are osteopenic. There is no evide nce of fracture or subluxation involving the cervical spine. Vertebral body height and alignment are maintained. There is straightening of the cervical lordosis. Anterior osteophytes are seen throughout. The odontoid process and lateral masses are intact. The atlantoaxial articulation is preserved noting productive degenerative change. The spinous processes appear intact. There is moderate to advanced multilevel cervical spondylosis. Uncovertebral and facet arthropathy contribute to neural foraminal stenosis at most levels. Intervertebral discs: Moderate to advanced disc space narrowing is seen at all levels between C4-C5 and C6-C7. Central canal: Posterior disc osteophyte complexes at C3-C4, C4-C5, C5-C6, and C6-C7 likely contribute to multilevel acquired compromise of the central canal. Soft tissues: The prevertebral and paraspinous soft tissues are within normal limits. There is calcification of the nuchal ligament. Atherosclerotic calcification is noted in the carotid bulbs. Calvarium: The visualized calvarium at the skull base appears intact. Brain parenchyma: Partially visualized brain parenchyma the skull base is within normal limits. Sinuses and mastoids: The visualized paranasal sinuses are clear. The mastoid air cells are well pneumatized. Lung apices: Clear as visualized. IMPRESSION: 1. There is no evidence of fracture or subluxation involving the cervical spine. 2. Osteopenia and spondylotic change as above. ACT 112: Negative or not required by law. Electronically signed by: Markos Camargo M.D. 03/30/2020 3:57 PM Dictated: 03/30/200Transcribed: 03/30/201549 CT abd pelvis IV con only CLINICAL HISTORY: Abdominal pain status post trauma COMPARISON STUDY: 03/13/2018 TECHNIQUE: The patient was scanned in a dynamic helical fashion during intravenous administration of 120 cc of Optiray 320 A dose lowering technique was utilized adhering to the principles of ALARA. CT DOSE: FINDINGS: Lower chest: There are subtle basilar interstitial and groundglass opacities. These could be atelectatic or infectious/inflammatory. Liver: The contrast-enhanced liver is normal in size, contour, and attenuation. There is no intrahepatic biliary ductal dilatation. The hepatic veins and portal veins are patent. Gallbladder: Unremarkable. Spleen: Normal in size and attenuation. Pancreas: Unremarkable. Adrenal glands: Unremarkable. Kidneys: There is symmetric renal cortical enhancement. The kidneys are normal in size without hydronephrosis. Bowel: There are no transition zones indicate bowel obstruction. There is no evidence of acute appendicitis. There is no evidence of acute diverticulitis. Peritoneum: There is no intraperitoneal free air or abdominal ascites. Vasculature: The abdominal aorta is normal in course and caliber. Adenopathy: None. Pelvic viscera: The bladder, and pelvic viscera are unremarkable. Skeletal structures: No acute fractures are visualized. IMPRESSION: 1. No evidence of acute intra-abdominal or pelvic injury. 2. No evidence of bowel obstruction. No evidence of free air 3. No evidence of acute appendicitis. No evidence of acute diverticulitis 4. Subtle basilar interstitial and groundglass pulmonary opacities. These can be atelectatic or infectious/inflammatory. ACT 112: Negative or not required by law. Electronically signed by: Johnny Freeman M.D. 03/30/2020 3:57 PM Dictated: 03/30/20 1552Transcribed: 03/30/20 1552 XR chest 1V portable CLINICAL HISTORY: Sepsis. COMPARISON STUDY: Chest radiograph October 05, 2018. FINDINGS: There is no pneumothorax or pleural effusion. Apparent left basilar opacity is likely artifactual. Moderate cardiomegaly is unchanged. There is no e vidence for pulmonary edema. IMPRESSION: No acute cardiopulmonary findings. Stable cardiomegaly. ACT 112: Negative or not required by law. Electronically signed by: Edward Grimaldo M.D. 03/30/2020 1:51 PM Dictated: 03/30/20 1348Transcribed: 03/30/20 1348 ECG Data Indication: + abdominal pain and + weakness Rate (beats per minute): 82 Rhythm: + normal sinus ECG Intervals/blocks: + First degree AV block, + Left bundle branch block, + Normal QRS and + Normal QT-c ECG ST segments: + Normal ST segments Comparison ECG Date: from (September 2018) Change: no significant change MDM Narrative 1322: The patient was evaluated in room C9. A complete history and physical exam was performed. Patient was seen in full airborne precautions. Patient was seen in N95's, gloves, gowns, face shield by myself and staff. Cardiac monitoring: An order was placed for continuous cardiac monitoring. The monitor shows a rate of 80 with sinus rhythm 1621: Vital signs stable. Patient is COVID-19 positive at outside facility. Labs show an elevated troponin of 0.092. Patient's INR was subtherapeutic. CTA of the chest was negative for PE. There are groundglass opacities within the right middle and right lower lobe. CT of the head, C-spine, and abdomen pelvis are within normal limits. Given the patient's COVID-19 positive and elevated troponin with the established left bundle branch block, the patient will be admitted to the [facility] team. Hospitalist Mirella Sparrow stated to admit to Dr. Chambers. Impression & Plan Elevated troponin, COVID-19 Discharge Plan Visit Data Chief Complaint: Weakness ED Provider: Chandana Keith Discharge Problem: Elevated troponin, COVID-19 Patient Disposition: Admitted As Inpatient Discharge Instructions Interventions: ED Discharge Assessment Last Done: 03/30/20 18:44
[2020-03-30 13:52] LABS: Albumin Level 4.1 gm/dl (3.4-5.0); Appearance Urine Clear (Clear); BUN Creatinine Ratio 26.5 (10-20); Bacteria Urine Automated Negative (Negative); Bilirubin Urine Negative (Negative); Blood Urine Trace (Negative); Calcium 8.8 mg/dl (8.5-10.1); Color Urine Yellow; Creatinine Clr Calc Pharmacy 33.5 ml/min; Epithelial Cell Urine Auto 20-30 /lpf (0-5); Est GFR (African American) 53.6; Est GFR (Non-African American) 46.2; Glucose Urine UA Negative (Negative); Ketones Urine Negative (Negative); Leukocyte Esterase Urine Negative (Negative); Magnesium 2.5 mg/dl (1.8-2.4); Nitrite Urine Negative (Negative); Potassium 3.6 mmol/L (3.5-5.1); Protein Urine 1+ (Negative); RBC Urine Automated 0-4 /hpf (0-4); Specific Gravity Urine 1.019 (1.000-1.030); Urobilinogen Urine Negative (Negative)
--- NOTE | 2020-03-30 13:53 | XRay Report ---
XR chest 1V portable CLINICAL HISTORY: Sepsis. COMPARISON STUDY: Chest radiograph October 05, 2018. FINDINGS: There is no pneumothorax or pleural effusion. Apparent left basilar opacity is likely artif actual. Moderate cardiomegaly is unchanged. There is no evidence for pulmonary edema. IMPRESSION: No acute cardiopulmonary findings. Stable cardiomegaly. ACT 112: Negative or not required by law. Electronically signed by: Edward Grimaldo M.D. 03/30/2020 1:51 PM
[2020-03-30 14:03] LABS: Bilirubin,Total 0.7 mg/dl (0.2-1); Globulin 4.1 gm/dl (2.5-4.0); Total Protein 8.2 gm/dl (6.4-8.2); Troponin I 0.092 ng/ml (0-0.045)
[2020-03-30 14:13] LABS: Base Excess VBG 2.4 mEq/L; HCO3 VBG 28 mmol/L; Oxygen Saturation VBG < 60.0 %; PCO2 VBG 48 mmHg (38-50); PO2 VBG 23 mmHg; pH VBG 7.39 (7.36-7.41)
[2020-03-30] MEDS: SODIUM CHLORIDE 0.9% 500 ML IV SCH (14:49)
[2020-03-30] MEDS ORDERED: OPTIRAY 320 125ml IV ONE (15:41)
--- NOTE | 2020-03-30 15:56 | CT Scan Report ---
HEAD CT NONCONTRAST CT DOSE: HISTORY: fall TECHNIQUE: Multiaxial CT images of the head were performed without the use of intravenous contrast. A utomated exposure control was utilized for this study. A dose lowering technique was utilized adheri ng to the principles of ALARA. Comparison: Head CT 11:30 T. Findings: The paranasal sinuses and mastoid air cells are clear. The calvarium and skull base are int act. There is no mass, hematoma, midline shift, acute infarct. White matter hypodensity is nonspecifi c but suggestive of microvascular ischemic change. The ventricles and sulci demonstrate mild age-rela deena involutional changes. Evidence for prior bilateral lens removal. 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 Impression: No significant change compared to the prior study. No acute intracranial abnormality. ACT 112: Negative or not required by law. Electronically signed by: Avinash Sharif M.D. 03/30/2020 3:55 PM
--- NOTE | 2020-03-30 15:58 | CT Scan Report ---
CT SCAN OF THE CERVICAL SPINE CLINICAL HISTORY: Fall. COMPARISON STUDY: CT angiogram of the neck dated 03/12/2018. TECHNIQUE: CT scan of the cervical spine is performed from the skull base to the upper thoracic spine . Images are reviewed in the axial, sagittal, and coronal planes. IV contrast was not administered fo r this examination. A dose lowering technique was utilized adhering to the principles of ALARA. CT DOSE: 1491.62 mGy.cm FINDINGS: Skeletal structures: The skeletal structures are osteopenic. There is no evidence of fracture or subl uxation involving the cervical spine. Vertebral body height and alignment are maintained. There is st raightening of the cervical lordosis. Anterior osteophytes are seen throughout. The odontoid process and lateral masses are intact. The atlantoaxial articulation is preserved noting productive degenerat shari change. The spinous processes appear intact. There is moderate to advanced multilevel cervical sp ondylosis. Uncovertebral and facet arthropathy contribute to neural foraminal stenosis at most levels . Intervertebral discs: Moderate to advanced disc space narrowing is seen at all levels between C4-C5 a nd C6-C7. Central canal: Posterior disc osteophyte complexes at C3-C4, C4-C5, C5-C6, and C6-C7 likely contribut e to multilevel acquired compromise of the central canal. Soft tissues: The prevertebral and paraspinous soft tissues are within normal limits. There is calcif ication of the nuchal ligament. Atherosclerotic calcification is noted in the carotid bulbs. Calvarium: The visualized calvarium at the skull base appears intact. Brain parenchyma: Partially visualized brain parenchyma the skull base is within normal limits. Sinuses and mastoids: The visualized paranasal sinuses are clear. The mastoid air cells are well pneu matized. Lung apices: Clear as visualized. IMPRESSION: 1. There is no evidence of fracture or subluxation involving the cervical spine. 2. Osteopenia and spondylotic change as above. ACT 112: Negative or not required by law. Electronically signed by: Markos Camargo M.D. 03/30/2020 3:57 PM
--- NOTE | 2020-03-30 15:58 | CT Scan Report ---
CT abd pelvis IV con only CLINICAL HISTORY: Abdominal pain status post trauma COMPARISON STUDY: 03/13/2018 TECHNIQUE: The patient was scanned in a dynamic helical fashion during intravenous administration of 120 cc of Optiray 320 A dose lowering technique was utilized adhering to the principles of ALARA. CT DOSE: FINDINGS: Lower chest: There are subtle basilar interstitial and groundglass opacities. These could be atelecta tic or infectious/inflammatory. Liver: The contrast-enhanced liver is normal in size, contour, and attenuation. There is no intrahepa tic biliary ductal dilatation. The hepatic veins and portal veins are patent. Gallbladder: Unremarkable. Spleen: Normal in size and attenuation. Pancreas: Unremarkable. Adrenal glands: Unremarkable. Kidneys: There is symmetric renal cortical enhancement. The kidneys are normal in size without hydron ephrosis. Bowel: There are no transition zones indicate bowel obstruction. There is no evidence of acute append icitis. There is no evidence of acute diverticulitis. Peritoneum: There is no intraperitoneal free air or abdominal ascites. Vasculature: The abdominal aorta is normal in course and caliber. Adenopathy: None. Pelvic viscera: The bladder, and pelvic viscera are unremarkable. Skeletal structures: No acute fractures are visualized. IMPRESSION: 1. No evidence of acute intra-abdominal or pelvic injury. 2. No evidence of bowel obstruction. No evidence of free air 3. No evidence of acute appendicitis. No evidence of acute diverticulitis 4. Subtle basilar interstitial and groundglass pulmonary opacities. These can be atelectatic or infec tious/inflammatory. ACT 112: Negative or not required by law. Electronically signed by: Johnny Freeman M.D. 03/30/2020 3:57 PM
--- NOTE | 2020-03-30 16:06 | CT Scan Report ---
CHEST CTA for PULMONARY ARTERIES CT DOSE: HISTORY: Covid positive. Shortness of breath. Fall. TECHNIQUE: Multiaxial CT images of the chest were performed following the intravenous administration of contrast to evaluate the pulmonary arteries. Maximal intensity projection images were also obtaine d. A dose lowering technique was utilized adhering to the principles of ALARA. COMPARISON STUDY: Chest CTA 12/24/2016. FINDINGS: The ascending thoracic aorta measures up to 3.9 cm in diameter. No evidence for an aortic d issection. Mild calcified plaque within the thoracic aorta. The heart remains moderately enlarged. No pleural or pericardial effusions. Bilateral lower lobe subsegmental pulmonary arteries are nondiagno stic due to motion artifact. However, the remaining pulmonary arteries show no filling defects to sug gest pulmonary embolus. No mediastinal hilar lymphadenopathy. Normal esophagus. Limited views of the upper abdomen demonstrate a normal liver, spleen, and adrenal glands. No pneumothorax. The central ai rways are patent. Mild respiratory motion artifact. Linear densities at the base of the left lower lo be favor atelectasis. Small patchy groundglass airspace opacities within the base of the right middle lobe and right lower lobe. This could represent a developing pneumonia or dependent change. IMPRESSION: 1. No evidence for pulmonary embolus with limitations as described above. 2. Moderate cardiomegaly, unchanged. 3. Small patchy groundglass airspace opacities within the base of the right middle lobe and right low er lobe. This could represent a developing pneumonia or dependent change. ACT 112: Negative or not required by law. Electronically signed by: Avinash Sharif M.D. 03/30/2020 4:05 PM
--- NOTE | 2020-03-30 17:00 | History & Physical Report ---
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 Pt with chronic CAD, HFrEF, multifactorial cardiomyopathy, last echocardiogram 2017 revealed EF 25%, basal and mid inferior hypokinesis, inferior wall motion normality, moderately dilated left ventricle, severe mitral valve insufficiency, PASP 50 mmHg. Follows with [facility] cardiology. Has declined AICD and pacer in past. He is on regimen of metoprolol, losartan, Imdur, Inspra and Lasix. He has actually lost 8 pounds in the past month denies any orthopnea or PND. Appears compensated from heart failure standpoint, but now with mildly elevated troponin and absence of EKG changes or chest pain. Newly diagnosed COVID-19. Admit to telemetry Obtain echocardiogram Cycle troponin, EKG Consult cardiology Continue metoprolol, losartan, Imdur, Inspra and Lasix Monitor blood pressure closely and obtain orthostatics in setting of patient complaining of lightheadedness (4) COVID-19: Lives with COVID-19 03/29 CTA chest showing groundglass opacities in right mid and lower lobe, likely covid PNA start empiric doxycycline for now currently on room air, therefore does not meet criteria for remdesivir or dexamethasone at this point if pt does desaturate would start these therapies at this time (5) Lightheadedness: pt with c/o of lightheaded/pre syncope and fall 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 Mcmahon upon discharge Pt was collaborated with Dr. Ortega, please see addendum History of Present Illness Chief Complaint: +COVID-19, dizziness/lightheaded and low BP x 1 day. Primary Care Provider: Laura Mcmahon MD This is an 89-year-old male who has significant past medical history of mu ltivessel CAD, chronic HFrEF with EF 20-25%, HTN, HLD, chronic LBBB, history of a flutter status post ablation on warfarin, T2DM, parkinsonism, vascular dementia, RLS who presents to ED after a positive COVID-19 test on 03/29 secondary to fever, cough, dizziness and lightheadedness. He is unsure when symptoms started but does admit to losing sense of taste and smell approximately 1 week ago. He has lost approximately 8 pounds in the past month. He states he had an appointment at the [facility] on 03/28 and was doing well. When he came home to work in his garage he overall felt hot. He went and took his took his temp which was 102.1. He also has been experiencing chills, sweats and was febrile today. Further complains of chills and sweats at night, clear phlegm productive cough which is chronic for him, CISNEROS, L sided chest discomfort. Chest discomfort moves around, comes and go, worse with deep breath, worse with touch. He took APAP for fever. When he woke up this morning he got up to get out of bed and when he was walking he felt very lightheaded and dizzy like he was going to pass out. He went to his recliner to sit down and when he tried to get up and walk again he felt lightheaded. He took his blood pressure which read a BP of 58/54, but he is unsure if this was working right. Due to lightheadedness and dizziness daughter was concerned and called PCP. He was recommended to seek ED. In ED he is remained hemodynamically stable and has actually been hypertensive. He is not requiring supplemental oxygen. Chest CTA was negative for PE but does show development of small patchy ground glass opacities in the base of the right middle and right lower lobe. He admits to falling and feeling faint. No injury. Head CT and Cspine CT negative for acute abnormality as well as CT abd/pelvis. Unfortunately pt does have elevation of his troponin, but denies chest pain. EKG is unchanged compared to prior. Allergies Allergy/AdvReac Type Severity Reaction Status Date / Time grass pollen-perennial rye, Allergy Unknown UNKNOWN Unverified 03/30/20 13:54 standar mold Allergy Unknown UNKNOWN Unverified 03/30/20 13:54 Penicillins Allergy Unknown UNKNOWN-HAPPENED Unverified 03/30/20 13:54 WHEN HE WAS CHILD Dust Allergy Unknown UNKNOWN Uncoded 03/30/20 13:54 Home Medications Medication Instructions Recorded Confirmed Type aspirin [Aspirin Low Dose] 81 mg PO QAM 03/12/18 03/30/20 History coenzyme Q10 100 mg PO QDL 03/12/18 03/30/20 History eplerenone [Inspra] 12.5 mg PO QAM 03/12/18 03/30/20 History furosemide 20 mg PO QAM 03/12/18 03/30/20 History levothyroxine 50 mcg PO DAILY 03/12/18 03/30/20 History losartan 25 mg PO BID 03/12/18 03/30/20 History rosuvastatin 40 mg PO QDD 03/12/18 03/30/20 History warfarin 5 mg PO SUMOWETHFR 03/12/18 03/30/20 History warfarin 7.5 mg PO TUSA 03/12/18 03/30/20 History C,E,zinc,copper [id number] 1 cap PO QAM 10/05/18 03/30/20 History [Ocuvite Adult 50 Plus] amlodipine 5 mg PO QAM 10/05/18 03/30/20 History finasteride 5 mg PO QDL 10/05/18 03/30/20 History isosorbide dinitrate 10 mg PO BID 10/05/18 03/30/20 History metoprolol succinate 12.5 mg PO QDD 10/05/18 03/30/20 History omega [id number] oil [Fish Oil] 1 cap PO QDL 10/05/18 03/30/20 History fluticasone furoate [Arnuity 1 inh INHALATION DAILY 03/30/20 03/30/20 History Ellipta] loratadine 10 mg PO DAILY PRN 03/30/20 03/30/20 History quetiapine 25 mg PO HS 03/30/20 03/30/20 History Past Med/Surg History Medical History (Updated 03/30/20 @ 20:09 by Chandana Keith) Atrial flutter CHF (congestive heart failure) Dyslipidemia GERD (gastroesophageal reflux disease) Hypertension LBBB (left bundle branch block) Pneumonia T2DM (type 2 diabetes mellitus) Surgical History History of hernia repair "02/18" History of tonsillectomy Family History Father Myocardial infarction, Onset Age: 86 Diabetes Mother Diabetes Social History (Updated 03/30/20 @ 17:11 by Mirella Romano PA-C) Smoking Status: Never smoker Second Hand Exposure: No; Do You Dip or Chew Tobacco: No; Hx Alcohol Use: No Hx Substance Use: No Preferred Language: Azerbaijani Communication Ability: Effective Artificial Plastic Eye Maker Required: No Beliefs That Will Affect Care: None marital status: / Current Living Situation: Alone Other Information That Helps Us Care for You: No Feels Safe at Home: Yes Safety Concerns: Feels Safe At This Time Assistive Devices: None Review of Systems Review of Systems: All systems reviewed & are unremarkable except as noted in HPI & below Physical Exam Physical Exam: Please refer to Dr. Ortega attending addendum for physical exam findings Results & Data Results & Data ([facility]) Vital Signs (Past 12 Hours) Vital Signs Temp Pulse Resp BP Pulse Ox 03/30/20 15:56 89 23 180/69 H 96 03/30/20 14:48 18 98 03/30/20 14:45 85 27 H 94 03/30/20 14:30 96 03/30/20 14:15 84 26 H 92 03/30/20 14:02 84 24 97 03/30/20 14:01 85 22 133/117 H 97 03/30/20 14:00 93 H 21 92 03/30/20 13:49 89 19 03/30/20 13:29 94 03/30/20 13:11 36.8 C 85 20 179/85 H 97 Laboratory Results Short CBC 03/30/20 03/30/20 Range/Units 13:20 13:20 WBC 7.29 (4.8-10.8) K/uL Hgb 14.1 (14.0-18.0) g/dL Hct 42.6 (42-52) % Plt Count 122 L (130-400) K/uL Troponin I 0.092 H* (0-0.045) ng/ml BMP 03/30/20 13:20 Sodium 137 Potassium 3.6 Chloride 102 Carbon Dioxide 27 BUN 36 H Creatinine 1.35 Glucose 114 H Calcium 8.8 Cardiac Enzymes 03/30/20 Range/Units 13:20 Troponin I 0.092 H* (0-0.045) ng/ml Liver Function 03/30/20 Range/Units 13:20 Total Bilirubin 0.7 (0.2-1) mg/dl AST 35 (15-37) U/L ALT 32 (12-78) U/L Alkaline Phosphatase 55 (45-117) U/L Albumin 4.1 (3.4-5.0) gm/dl Urine 03/30/20 Range/Units 13:20 Urine Color Yellow Urine Appearance Clear (Clear) Urine pH 5.0 (4.5-7.5) Ur Specific [place] 1.019 (1.000-1.030) Urine Protein 1+ H (Negative) Urine Glucose (UA) Negative (Negative) Diagnostic Findings Chest CTA: IMPRESSION: 1. No evidence for pulmonary embolus with limitations as described above. 2. Moderate cardiomegaly, unchanged. 3. Small patchy groundglass airspace opacities within the base of the right middle lobe and right lower lobe. This could represent a developing pneumonia or dependent change. Head CT: Impression: No significant change compared to the prior study. No acute intracranial abnormality. C spine CT: IMPRESSION: 1. There is no evidence of fracture or subluxation involving the cervical spine. 2. Osteopenia and spondylotic change as above. CT abd/pelvis: IMPRESSION: 1. No evidence of acute intra-abdominal or pelvic injury. 2. No evidence of bowel obstruction. No evidence of free air 3. No evidence of acute appendicitis. No evidence of acute diverticulitis 4. Subtle basilar interstitial and groundglass pulmonary opacities. These can be atelectatic or infectious/inflammatory. CXR: IMPRESSION: No acute cardiopulmonary findings. Stable cardiomegaly. Medications Administered Sodium Chloride (Nss) 500 mls @ 125 mls/hr IV .Q4H CORBY Stop: 04/29/20 13:29 Last Admin: 03/30/20 14:49 Dose: 125 mls/hr Documented by: [id number] Ioversol (Optiray 320 125ml) 120 ml IV ONCE ONE Stop: 03/30/20 15:42 Last Admin: 03/30/20 15:42 Dose: 120 ml Documented by: [id number] ECG Rate (beats per minute): 82 Rhythm: normal sinus Findings: + LBBB and + prolonged QT (qtc 483ms) Comparison ECG Date: from (2018) Change: no significant change Code Status & VTE Plan Code Status Full Code VTE Prophylaxis Plan VTE Prophylaxis will be ordered: Yes Supervising Physician Co-Signing Physician Notes Pt was seen and examined. Agreed with Juan Antonio REYES , assessment and plan. 89-year-old male who has significant past medical history of multivessel CAD, chronic HFrEF with EF 20-25%, HTN, HLD, chronic LBBB, history of a flutter status post ablation on warfarin, T2DM, parkinsonism, vascular dementia, RLS who presents to ED for dizziness and weakness. [facility], chills. Pt said this morning he woke up feeling weak and dizzy while walking. He said that when he checked his BP this morning and was low. He said that his daughter called his PCP, because he was positive for COVID 19 and his PCP was recommended to go to the ER for evaluation. In the ER troponin was mildly elevated at 0.092 and BP was elevated. CTA chest showed no evidence for pulmonary embolus and small patchy groundglass airspace opacities within the base of the right middle lobe and right lower lobe. Pt saturated well on RA and said that he feels much better now. Denies any chest pain, palpitation, dizziness and SOB. General- No acute distress Head- atraumatic Eyes- PERRL, EOMI, ENT- oropharynx clear Neck- supple, no JVD Lungs- clear to auscultation Heart- No murmur Abdomen- normal bowel sounds, soft, nontender Extremities- no calf tenderness, No edema Neuro- alert, oriented x 3; PERRL, EOMI; no facial palsy; no dysarthria Skin- warm & dry A/P Weakness associated Dizziness Possible related to acute illness with COVID 19 CT head showed no acute intracranial abnormality Fall precaution Continue monitor COVID [address] chest showed no evidence for pulmonary embolus and small patchy groundglass airspace opacities within the base of the right middle lobe and right lower lo be. Saturated well on RA Does not meet criteria for remdesivir, dexamethasone and plasma convalescent since pt showed any sign of hypoxia and saturated well on RA Will add Doxycycline to cover for any bacteria pneumonia Will repeat Procalcitonin and inflammatory marker in am Elevated Troponin Possible related to COVID 19 vs elevated BP Denies any chest pain Will trend troponin and check echo in am Continue metoprolol, aspirin and statin Afib Rate control on Metoprolol Continue aspirin and Coumadin with INR 1.7 today Stable DVT px Continue coumadin with INR 1.7 Will add Lovenox subq until INR therapeutic Please refer to Mirella REYES documentation for other problems. MD Jordan
[2020-03-30] MEDS ORDERED: WARFARIN SOD 5 MG TAB PO SCH (19:53)
[2020-03-30] MEDS ORDERED: POLYETHYLENE (MIRALAX) 17 GM PACK PO PRN (19:53)
[2020-03-30] MEDS ORDERED: ACETAMINOPHEN 325 MG TAB PO PRN (19:53)
[2020-03-30] MEDS ORDERED: ONDANSETRON INJ 2 MG/ML 2 ML VIAL IV PRN (19:53)
[2020-03-30] MEDS ORDERED: MAGNESIUM HYDROXIDE SUSP 30 ML UDC PO PRN (19:53)
[2020-03-30] MEDS ORDERED: ALUMINUM/MAGNESIUM SUSP 30 ML UDC PO PRN (19:53)
[2020-03-30] MEDS ORDERED: LABETALOL HCL IV 5 MG/ML 20ML IV PRN (21:07)
[2020-03-30] MEDS: ZINC SULFATE 220 MG CAPSULE PO SCH (21:52)
[2020-03-30] MEDS: QUEtiapine FUMARATE 25 MG TABLET PO SCH (21:52)
[2020-03-30] MEDS: LOSARTAN POTASSIUM 25 MG TAB PO SCH (21:52)
[2020-03-30] MEDS: CHOLECALCIFEROL 1,000 UNITS 25 MCG TAB PO SCH (21:53)
[2020-03-30] MEDS: DOXYCYCLINE HYCLATE 100 MG CAP PO SCH (22:16)
[2020-03-31] MEDS: EPLERENONE: ORDER AWAITING ACTION SCH ×3 (01:07→15:43)
[2020-03-31] MEDS: amLODIPine BESYLATE 5 MG TAB PO SCH (03:16)
--- NOTE | 2020-03-31 05:58 | Electrocardiogram Report ---
Test Reason : Blood Pressure : / mmHG Vent. Rate : 082 BPM Atrial Rate : 082 BPM P-R Int : 248 ms QRS Dur : 158 ms QT Int : 414 ms P-R-T Axes : 093 -56 127 degrees QTc Int : 483 ms Sinus rhythm with 1st degree A-V block with Premature supraventricular complexes Left axis deviation Left bundle branch block Abnormal ECG When compared with ECG of 05-OCT-2018 10:20, No significant change was found Confirmed by Dillan Magallanes ([id number]) on 03/31/2020 5:58:02 AM Referred By: Confirmed By:Dillan Magallanes
[2020-03-31] MEDS: LEVOTHYROXINE SODIUM 50 MCG TABLET PO SCH (06:13)
[2020-03-31] MEDS: ISOSORBIDE DINITRATE 10 MG TAB PO SCH ×2 (06:13→12:37)
[2020-03-31 06:23] LABS: Hematocrit (blood only) 38.8 % (42-52); Hemoglobin 12.9 g/dL (14.0-18.0); Mean Corpuscular Hemoglobin 30.1 pg (25-34); Mean Corpuscular Hgb Conc 33.2 g/dL (32-36); Mean Corpuscular Volume 90.4 fL (80-100); RDW Coefficient of Variation 14.8 % (11.5-14.5); RDW Standard Deviation 49.5 fL (36.4-46.3); Red Blood Count 4.29 M/uL (4.7-6.1); White Blood Count 3.42 K/uL (4.8-10.8)
[2020-03-31 06:42] LABS: Estimated Average Glucose 154 mg/dl
[2020-03-31 06:43] LABS: Mean Platelet Volume 10.4 fL (7.4-10.4); Platelet Count 93 K/uL (130-400); Platelet Estimate Decreased (Normal)
[2020-03-31 06:56] LABS: Albumin Level 3.3 gm/dl (3.4-5.0); BUN Creatinine Ratio 28.7 (10-20); Calcium 7.9 mg/dl (8.5-10.1); Creatinine Clr Calc Pharmacy 37.8 ml/min; Est GFR (African American) 64.4; Est GFR (Non-African American) 55.5; Potassium 3.8 mmol/L (3.5-5.1)
[2020-03-31 07:06] LABS: Albumin Globulin Ratio 0.9 (0.9-2); Bilirubin,Total 0.6 mg/dl (0.2-1); C Reactive Protein 3.02 mg/dl (0-0.29); Ferritin 428.9 ng/ml (8-388); Globulin 3.5 gm/dl (2.5-4.0); Total Protein 6.8 gm/dl (6.4-8.2); Troponin I 0.161 ng/ml (0-0.045)
[2020-03-31] MEDS ORDERED: amLODIPine BESYLATE 5 MG TAB PO SCH (09:00)
[2020-03-31] MEDS ORDERED: NON-FORMULARY MEDICATION (C,E,Zinc,Copper 11-Omega3s-Lut [Ocuvite Adult 50 Plus] 250-5-1 m PO SCH (09:00)
[2020-03-31] MEDS: DOXYCYCLINE HYCLATE 100 MG CAP PO SCH ×2 (09:11→21:31)
[2020-03-31] MEDS: FUROSEMIDE 20 MG TAB PO SCH (09:11)
[2020-03-31] MEDS: ZINC SULFATE 220 MG CAPSULE PO SCH (09:11)
[2020-03-31] MEDS: ASPIRIN 81 MG ECTAB PO SCH (09:12)
[2020-03-31] MEDS: CHOLECALCIFEROL 1,000 UNITS 25 MCG TAB PO SCH (09:12)
[2020-03-31] MEDS: FLUTICASONE FUROATE 100MCG 14 PUFFS/INHALER INH SCH (09:12)
[2020-03-31] MEDS: ENOXAPARIN INJ 40 MG/0.4 ML SYR SQ SCH ×2 (09:12→11:12)
[2020-03-31] MEDS: LOSARTAN POTASSIUM 25 MG TAB PO SCH ×2 (09:13→21:31)
[2020-03-31 09:35] LABS: INR 1.7 (0.9-1.1); Prothrombin Time 17.8 Seconds (9.0-12.0)
--- NOTE | 2020-03-31 11:03 | Cardiology Consultation ---
Date of Consultation March 31, 2020 Assessment & Plan (1) COVID-19: (2) Chronic coronary artery disease: (3) CHF (congestive heart failure): (4) LBBB (left bundle branch block): (5) Aortic stenosis: (6) Ischemic cardiomyopathy: This patient has an extensive history of ischemic heart disease including a cardiomyopathy, aortic stenosis and a chronic left bundle branch block. He is going to be difficult to manage with his new diagnosis of Covid pneumonia. I will order an echocardiogram and review it when it is available and then have further recommendations. History of Present Illness Attending Physician: Cruz Iglesias MD History of Present Illness This is an elderly 89-year-old with extensive cardiac history including a severe cardiomyopathy with an estimated left ventricular ejection fraction of around 30%, chronic left bundle branch block and aortic valve disease. The patient was admitted to the Covid unit. This is a chart review consultation only. There has been some difficulty managing the patient's fluids and there is concerned that his cardiomyopathy may have worsened due to a viral myocarditis as his cardiac troponins have been elevated. Past Medical/Surgical History: 1. Admission to [facility] in June/July 2015 with acute decompensated systolic congestive heart failure 2. 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 3. Symptomatic atrial flutter with rapid ventricular response status post September 15, 2015 cardioversion at [facility] 4. Chart history of multivessel atherosclerotic coronary artery disease. Diagnostic cardiac catheterization performed on October 28, 2002 demonstrated a mildly calcified left main with no significant stenosis, 50% long concentric narrowing of the proximal 3rd of the LAD with the remainder the vessel having minor luminal irregularities, large non dominant left circumflex with 50% segmental narrowing in the AV groove branch common a dominant, moderate size right coronary artery with luminal irregularities. 5. Moderately severe cardiomyopathy with ejection fraction 30 to 34% possibly representing tachycardia induced cardiomyopathy verses ischemic versus other. 6. Chronic left bundle branch block. 7. Hypertension 8. Dyslipidemia 9. GERD 10.Type II diabetes mellitus 11.Vertigo 12.Tonsillectomy. 13. Prostate biopsy Allergies Allergy/AdvReac Type Severity Reaction Status Date / Time grass pollen-perennial rye, Allergy Unknown UNKNOWN Unverified 03/30/20 13:54 standar mold Allergy Unknown UNKNOWN Unverified 03/30/20 13:54 Penicillins Allergy Unknown UNKNOWN-HAPPENED Unverified 03/30/20 13:54 WHEN HE WAS CHILD Dust Allergy Unknown UNKNOWN Uncoded 03/30/20 13:54 Home Medications Medication Instructions Recorded Confirmed Type aspirin [Aspirin Low Dose] 81 mg PO QAM 03/12/18 03/30/20 History coenzyme Q10 100 mg PO QDL 03/12/18 03/30/20 History eplerenone [Inspra] 12.5 mg PO QAM 03/12/18 03/30/20 History furosemide 20 mg PO QAM 03/12/18 03/30/20 History levothyroxine 50 mcg PO DAILY 03/12/18 03/30/20 History losartan 25 mg PO BID 03/12/18 03/30/20 History rosuvastatin 40 mg PO QDD 03/12/18 03/30/20 History warfarin 5 mg PO SUMOWETHFR 03/12/18 03/30/20 History warfarin 7.5 mg PO TUSA 03/12/18 03/30/20 History C,E,zinc,copper [id number] 1 cap PO QAM 10/05/18 03/30/20 History [Ocuvite Adult 50 Plus] amlodipine 5 mg PO QAM 10/05/18 03/30/20 History finasteride 5 mg PO QDL 10/05/18 03/30/20 History isosorbide dinitrate 10 mg PO BID 10/05/18 03/30/20 History metoprolol succinate 12.5 mg PO QDD 10/05/18 03/30/20 History omega 4-[id number] oil [Fish Oil] 1 cap PO QDL 10/05/18 03/30/20 History fluticasone furoate [Arnuity 1 inh INHALATION DAILY 03/30/20 03/30/20 History Ellipta] loratadine 10 mg PO DAILY PRN 03/30/20 03/30/20 History quetiapine 25 mg PO HS 03/30/20 03/30/20 History Patient History Medical History Atrial flutter CHF (congestive heart failure) Dyslipidemia GERD (gastroesophageal reflux disease) Hypertension LBBB (left bundle branch block) Pneumonia T2DM (type 2 diabetes mellitus) Surgical History History of hernia repair "02/18" History of tonsillectomy Family History Father Myocardial infarction, Onset Age: 86 Diabetes Mother Diabetes Social History Smoking Status: Never smoker Second Hand Exposure: No; Do You Dip or Chew Tobacco: No; Hx Alcohol Use: No Hx Substance Use: No Preferred Language: Arabic Communication Ability: Effective Forensic Anthropologist Required: No Beliefs That Will Affect Care: None marital status: / Current Living Situation: Alone Other Information That Helps Us Care for You: No Feels Safe at Home: Yes Safety Concerns: Feels Safe At This Time Assistive Devices: None Review of Systems Review of Systems: Unobtainable due to cognitive status Physical Exam Physical Exam: Not completed Results & Data ([facility]) Vital Signs (Past 12 Hours) Vital Signs Temp Pulse Resp BP BP Pulse Ox 03/31/20 07:29 36.8 C 72 20 107/56 L 94 03/31/20 03:13 36.8 C 71 147/57 H 93 03/31/20 00:25 36.9 C 74 24 150/69 H 93 Laboratory Results Laboratory Results - last 24 hr 03/30/20 03/30/20 03/30/20 13:20 13:20 13:20 WBC 7.29 RBC 4.66 L Hgb 14.1 Hct 42.6 MCV 91.4 MCH 30.3 MCHC 33.1 RDW Std Deviation 49.4 H RDW Coeff of Naun 14.7 H Plt Count 122 L MPV 10.4 Immature Gran % (Auto) 0.1 Neut % (Auto) 83.1 Lymph % (Auto) 12.3 [place] % (Auto) 4.5 Eos % (Auto) 0.0 Baso % (Auto) 0.0 Neut # (Auto) 6.05 Lymph # (Auto) 0.90 L [place] # (Auto) 0.33 Eos # (Auto) 0.00 Baso # (Auto) 0.00 Immature Gran # (Auto) 0.01 Platelet Estimate ESR PT 17.5 H INR 1.7 H APTT 38.6 H PTT Ratio 1.4 VBG pH VBG pCO2 VBG pO2 VBG HCO3 VBG O2 Saturation VBG Base Excess Barometric Pressure Sodium 137 Potassium 3.6 Chloride 102 Carbon Dioxide 27 Anion Gap 8.0 BUN 36 H Creatinine 1.35 Est Cr Clr Drug Dosing 33.5 Est GFR ( Amer) 53.6 Est GFR (Non-Af Amer) 46.2 BUN/Creatinine Ratio 26.5 H Glucose 114 H Estimat Average Glucose Hemoglobin A1c Lactate Calcium 8.8 Magnesium 2.5 H Ferritin Total Bilirubin 0.7 AST 35 ALT 32 Alkaline Phosphatase 55 Lactate Dehydrogenase Troponin I 0.092 H* C-Reactive Protein Total Protein 8.2 Albumin 4.1 Globulin 4.1 H Albumin/Globulin Ratio 1.0 Triglycerides Cholesterol LDL Cholesterol, Calc VLDL Cholesterol, Calc HDL Cholesterol Cholesterol/HDL Ratio Lipase 168 Procalcitonin Urine Color Urine Appearance Urine pH Ur Specific [place] Urine Protein Urine Glucose (UA) Urine Ketones Urine Blood Urine Nitrite Urine Bilirubin Urine Urobilinogen Ur Leukocyte Esterase Urine WBC (Auto) Urine RBC (Auto) U Hyaline Cast (Auto) U Epithel Cells (Auto) Urine Bacteria (Auto) 03/30/20 03/30/20 03/30/20 13:20 13:20 13:58 WBC RBC Hgb Hct MCV MCH MCHC RDW Std Deviation RDW Coeff of Naun Plt Count MPV Immature Gran % (Auto) Neut % (Auto) Lymph % (Auto) [place] % (Auto) Eos % (Auto) Baso % (Auto) Neut # (Auto) Lymph # (Auto) [place] # (Auto) Eos # (Auto) Baso # (Auto) Immature Gran # (Auto) Platelet Estimate ESR PT INR APTT PTT Ratio VBG pH VBG pCO2 VBG pO2 VBG HCO3 VBG O2 Saturation VBG Base Excess Barometric Pressure Sodium Potassium Chloride Carbon Dioxide Anion Gap BUN Creatinine Est Cr Clr Drug Dosing Est GFR ( Amer) Est GFR (Non-Af Amer) BUN/Creatinine Ratio Glucose Estimat Average Glucose Hemoglobin A1c Lactate 1.6 Calcium Magnesium Ferritin Total Bilirubin AST ALT Alkaline Phosphatase Lactate Dehydrogenase Troponin I C-Reactive Protein Total Protein Albumin Globulin Albumin/Globulin Ratio Triglycerides Cholesterol LDL Cholesterol, Calc VLDL Cholesterol, Calc HDL Cholesterol Cholesterol/HDL Ratio Lipase Procalcitonin < 0.05 Urine Color Yellow Urine Appearance Clear Urine pH 5.0 Ur Specific [place] 1.019 Urine Protein 1+ H Urine Glucose (UA) Negative Urine Ketones Negative Urine Blood Trace H Urine Nitrite Negative Urine Bilirubin Negative Urine Urobilinogen Negative Ur Leukocyte Esterase Negative Urine WBC (Auto) 1-5 Urine RBC (Auto) 0-4 U Hyaline Cast (Auto) 10-30 H U Epithel Cells (Auto) 20-30 H Urine Bacteria (Auto) Negative 03/30/20 03/30/20 03/31/20 13:58 19:11 00:54 WBC RBC Hgb Hct MCV MCH MCHC RDW Std Deviation RDW Coeff of Naun Plt Count MPV Immature Gran % (Auto) Neut % (Auto) Lymph % (Auto) [place] % (Auto) Eos % (Auto) Baso % (Auto) Neut # (Auto) Lymph # (Auto) [place] # (Auto) Eos # (Auto) Baso # (Auto) Immature Gran # (Auto) Platelet Estimate ESR PT INR APTT PTT Ratio VBG pH 7.39 VBG pCO2 48 VBG pO2 23 VBG HCO3 28 VBG O2 Saturation < 60.0 VBG Base Excess 2.4 Barometric Pressure 734.1 Sodium Potassium Chloride Carbon Dioxide Anion Gap BUN Creatinine Est Cr Clr Drug Dosing Est GFR ( Amer) Est GFR (Non-Af Amer) BUN/Creatinine Ratio Glucose Estimat Average Glucose Hemoglobin A1c Lactate Calcium Magnesium Ferritin Total Bilirubin AST ALT Alkaline Phosphatase Lactate Dehydrogenase Troponin I 0.088 H* 0.150 H* C-Reactive Protein Total Protein Albumin Globulin Albumin/Globulin Ratio Triglycerides Cholesterol LDL Cholesterol, Calc VLDL Cholesterol, Calc HDL Cholesterol Cholesterol/HDL Ratio Lipase Procalcitonin Urine Color Urine Appearance Urine pH Ur Specific [place] Urine Protein Urine Glucose (UA) Urine Ketones Urine Blood Urine Nitrite Urine Bilirubin Urine Urobilinogen Ur Leukocyte Esterase Urine WBC (Auto) Urine RBC (Auto) U Hyaline Cast (Auto) U Epithel Cells (Auto) Urine Bacteria (Auto) 03/31/20 03/31/20 03/31/20 05:35 05:35 05:35 WBC 3.42 L RBC 4.29 L Hgb 12.9 L Hct 38.8 L MCV 90.4 MCH 30.1 MCHC 33.2 RDW Std Deviation 49.5 H RDW Coeff of Naun 14.8 H Plt Count 93 L MPV 10.4 Immature Gran % (Auto) Neut % (Auto) Lymph % (Auto) [place] % (Auto) Eos % (Auto) Baso % (Auto) Neut # (Auto) Lymph # (Auto) [place] # (Auto) Eos # (Auto) Baso # (Auto) Immature Gran # (Auto) Platelet Estimate Decreased L ESR PT INR APTT PTT Ratio VBG pH VBG pCO2 VBG pO2 VBG HCO3 VBG O2 Saturation VBG Base Excess Barometric Pressure Sodium 139 Potassium 3.8 Chloride 105 Carbon Dioxide 30 Anion Gap 4.0 BUN 33 H Creatinine 1.16 Est Cr Clr Drug Dosing 37.8 Est GFR ( Amer) 64.4 Est GFR (Non-Af Amer) 55.5 BUN/Creatinine Ratio 28.7 H Glucose 104 H Estimat Average Glucose 154 Hemoglobin A1c 7.0 H Lactate Calcium 7.9 L Magnesium Ferritin 428.9 H Total Bilirubin 0.6 AST 42 H ALT 35 Alkaline Phosphatase 44 L Lactate Dehydrogenase Troponin I 0.161 H* C-Reactive Protein 3.02 H Total Protein 6.8 Albumin 3.3 L Globulin 3.5 Albumin/Globulin Ratio 0.9 Triglycerides 77 Cholesterol 101 LDL Cholesterol, Calc 45 VLDL Cholesterol, Calc 15 HDL Cholesterol 41 Cholesterol/HDL Ratio 3 Lipase Procalcitonin Urine Color Urine Appearance Urine pH Ur Specific [place] Urine Protein Urine Glucose (UA) Urine Ketones Urine Blood Urine Nitrite Urine Bilirubin Urine Urobilinogen Ur Leukocyte Esterase Urine WBC (Auto) Urine RBC (Auto) U Hyaline Cast (Auto) U Epithel Cells (Auto) Urine Bacteria (Auto) 03/31/20 03/31/20 03/31/20 05:35 05:35 05:35 WBC RBC Hgb Hct MCV MCH MCHC RDW Std Deviation RDW Coeff of Naun Plt Count MPV Immature Gran % (Auto) Neut % (Auto) Lymph % (Auto) [place] % (Auto) Eos % (Auto) Baso % (Auto) Neut # (Auto) Lymph # (Auto) [place] # (Auto) Eos # (Auto) Baso # (Auto) Immature Gran # (Auto) Platelet Estimate ESR 25 H PT INR APTT PTT Ratio VBG pH VBG pCO2 VBG pO2 VBG HCO3 VBG O2 Saturation VBG Base Excess Barometric Pressure Sodium Potassium Chloride Carbon Dioxide Anion Gap BUN Creatinine Est Cr Clr Drug Dosing Est GFR ( Amer) Est GFR (Non-Af Amer) BUN/Creatinine Ratio Glucose Estimat Average Glucose Hemoglobin A1c Lactate Calcium Magnesium Ferritin Total Bilirubin AST ALT Alkaline Phosphatase Lactate Dehydrogenase 253 H Troponin I C-Reactive Protein Total Protein Albumin Globulin Albumin/Globulin Ratio Triglycerides Cholesterol LDL Cholesterol, Calc VLDL Cholesterol, Calc HDL Cholesterol Cholesterol/HDL Ratio Lipase Procalcitonin < 0.05 Urine Color Urine Appearance Urine pH Ur Specific [place] Urine Protein Urine Glucose (UA) Urine Ketones Urine Blood Urine Nitrite Urine Bilirubin Urine Urobilinogen Ur Leukocyte Esterase Urine WBC (Auto) Urine RBC (Auto) U Hyaline Cast (Auto) U Epithel Cells (Auto) Urine Bacteria (Auto) 03/31/20 05:40 WBC RBC Hgb Hct MCV MCH MCHC RDW Std Deviation RDW Coeff of Naun Plt Count MPV Immature Gran % (Auto) Neut % (Auto) Lymph % (Auto) [place] % (Auto) Eos % (Auto) Baso % (Auto) Neut # (Auto) Lymph # (Auto) [place] # (Auto) Eos # (Auto) Baso # (Auto) Immature Gran # (Auto) Platelet Estimate ESR PT 17.8 H INR 1.7 H APTT PTT Ratio VBG pH VBG pCO2 VBG pO2 VBG HCO3 VBG O2 Saturation VBG Base Excess Barometric Pressure Sodium Potassium Chloride Carbon Dioxide Anion Gap BUN Creatinine Est Cr Clr Drug Dosing Est GFR ( Amer) Est GFR (Non-Af Amer) BUN/Creatinine Ratio Glucose Estimat Average Glucose Hemoglobin A1c Lactate Calcium Magnesium Ferritin Total Bilirubin AST ALT Alkaline Phosphatase Lactate Dehydrogenase Troponin I C-Reactive Protein Total Protein Albumin Globulin Albumin/Globulin Ratio Triglycerides Cholesterol LDL Cholesterol, Calc VLDL Cholesterol, Calc HDL Cholesterol Cholesterol/HDL Ratio Lipase Procalcitonin Urine Color Urine Appearance Urine pH Ur Specific [place] Urine Protein Urine Glucose (UA) Urine Ketones Urine Blood Urine Nitrite Urine Bilirubin Urine Urobilinogen Ur Leukocyte Esterase Urine WBC (Auto) Urine RBC (Auto) U Hyaline Cast (Auto) U Epithel Cells (Auto) Urine Bacteria (Auto) Medications Administered Current Inpatient Medications Acetaminophen (Acetaminophen 325 Mg Tab) 650 mg PO Q4H PRN PRN Reason: Pain or Fever Stop: 04/29/20 19:52 Al Hydrox/Mg Hydrox/Simethicone (Aluminum/Magnesium Susp 30 Ml Udc) 15 ml PO Q4H PRN PRN Reason: Dyspepsia Stop: 04/29/20 19:52 Amlodipine Besylate (Amlodipine Besylate 5 Mg Tab) 5 mg PO QAM [place] Stop: 04/30/20 01:44 Last Admin: 03/31/20 03:16 Dose: 5 mg Documented by: Aspirin (Aspirin 81 Mg Ectab) 81 mg PO QAM [facility] Stop: 04/30/20 08:59 Last Admin: 03/31/20 09:12 Dose: 81 mg Documented by: Doxycycline Hyclate (Doxycycline Hyclate 100 Mg Cap) 100 mg PO BID [facility]; Protocol Stop: 04/06/20 21:14 Last Admin: 03/31/20 09:11 Dose: 100 mg Documented by: Enoxaparin Sodium (Enoxaparin Inj 40 Mg/0.4 Ml Syr) 40 mg SQ QAM [facility] Stop: 04/30/20 08:59 Last Admin: 03/31/20 11:12 Dose: 40 mg Documented by: Finasteride (Finasteride 5 Mg Tab) 5 mg PO QDL [facility] Stop: 04/30/20 11:29 Last Admin: 03/31/20 12:37 Dose: 5 mg Documented by: Fish Oil ([place]-3 (Purified Fish Oil) 1 Gm Cap) 1 gm PO QDL [facility] Stop: 04/30/20 11:29 Last Admin: 03/31/20 12:37 Dose: 1 gm Documented by: Fluticasone Furoate (Fluticasone Furoate 100mcg 14 Puffs/Inhaler) 1 puffs INH DAILY [facility] Stop: 04/30/20 08:59 Last Admin: 03/31/20 09:12 Dose: 1 puffs Documented by: Furosemide (Furosemide 20 Mg Tab) 20 mg PO QAM [facility] Stop: 04/30/20 08:59 Last Admin: 03/31/20 09:11 Dose: 20 mg Documented by: Isosorbide Dinitrate (Isosorbide Dinitrate 10 Mg Tab) 10 mg PO 0700,1200 [facility] Stop: 04/30/20 06:59 Last Admin: 03/31/20 12:37 Dose: 10 mg Documented by: Labetalol HCl (Labetalol Hcl Iv 5 Mg/Ml 20ml) 5 mg IV ONE PRN PRN Reason: FOR systolic BP above 170 Stop: 04/29/20 21:06 Levothyroxine Sodium (Levothyroxine Sodium 50 Mcg Tablet) 50 mcg PO DAILYBB [facility] Stop: 04/30/20 06:29 Last Admin: 03/31/20 06:13 Dose: 50 mcg Documented by: Losartan Potassium (Losartan Potassium 25 Mg Tab) 25 mg PO BID [facility] Stop: 04/29/20 20:59 Last Admin: 03/31/20 09:13 Dose: 25 mg Documented by: Magnesium Hydroxide (Magnesium Hydroxide Susp 30 Ml Udc) 30 ml PO Q12H PRN PRN Reason: Constipation Stop: 04/29/20 19:52 Metoprolol Succinate (Metoprolol Succ 25mg Ext Rel Tab) 12.5 mg PO QDD [facility] Stop: 04/30/20 16:29 Miscellaneous (Eplerenone: Order Awaiting Action) 1 ea N/A QS [facility] Stop: 04/30/20 00:00 Last Admin: 03/31/20 09:10 Dose: Not Given Documented by: Miscellaneous (Pending Order: Dc Lovenox) 1 ea N/A DAILY@1000 [facility] Stop: 04/30/20 09:59 Last Admin: 03/31/20 10:50 Dose: Not Given Documented by: Ondansetron HCl (Ondansetron Inj 2 Mg/Ml 2 Ml Vial) 4 mg IV Q6H PRN PRN Reason: Nausea Stop: 04/29/20 19:52 Polyethylene Glycol (Polyethylene (Miralax) 17 Gm Pack) 17 gm PO DAILY PRN PRN Reason: Constipation Stop: 04/29/20 19:52 Quetiapine Fumarate (Quetiapine Fumarate 25 Mg Tablet) 25 mg PO HS [facility] Stop: 04/29/20 20:59 Last Admin: 03/30/20 21:52 Dose: 25 mg Documented by: Rosuvastatin Calcium (Rosuvastatin Calcium 20 Mg Tab) 40 mg PO QDD [facility] Stop: 04/30/20 16:29 Vitamin D (Cholecalciferol 1,000 Units 25 Mcg Tab) 2,000 units PO [facility] Stop: 04/29/20 19:52 Last Admin: 03/31/20 09:12 Dose: 2,000 units Documented by: Warfarin Sodium (Warfarin Sod 7.5 Mg Tab) 7.5 mg PO [email or web address]@1600 [facility] Stop: 05/01/20 15:59 Warfarin Sodium (Warfarin Sod 5 Mg Tab) 5 mg PO [email or web address]@1600 [facility] Stop: 04/29/20 19:52 Last Admin: 03/30/20 22:06 Dose: 5 mg Documented by: Zinc Sulfate (Zinc Sulfate 220 Mg Capsule) 220 mg PO QAM [facility] Stop: 04/29/20 19:52 Last Admin: 03/31/20 09:11 Dose: 220 mg Documented by:
[2020-03-31] MEDS ORDERED: NON-FORMULARY MEDICATION (Coenzyme Q10 100 mg Tablet) PO SCH (11:30)
[2020-03-31] MEDS: OMEGA-3 (PURIFIED FISH OIL) 1 GM CAP PO SCH (12:37)
[2020-03-31] MEDS: FINASTERIDE 5 MG TAB PO SCH (12:37)
[2020-03-31] MEDS ORDERED: REMDESIVIR 200 MG in SODIUM CHLORIDE 0.9% 210 ML IV STA (14:00)
[2020-03-31] MEDS: WARFARIN SOD 7.5 MG TAB PO SCH (15:45)
[2020-03-31] MEDS: METOPROLOL SUCC 25MG EXT REL TAB PO SCH (15:46)
[2020-03-31] MEDS: dexAMETHasone 6 MG in SYRINGE 0 ML IV SCH (15:46)
[2020-03-31] MEDS: ROSUVASTATIN CALCIUM 20 MG TAB PO SCH (15:47)
[2020-03-31] MEDS: SODIUM CHLORIDE 0.9% 10ML FLUSH IV SCH (18:18)
--- NOTE | 2020-03-31 18:39 | Hospitalist Progress Note ---
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 Chronic CAD, HFrEF, multifactorial cardiomyopathy, last echocardiogram 2017 revealed EF 25%, basal and mid inferior hypokinesis, inferior wall motion normality, moderately dilated left ventricle, severe mitral valve insufficiency, PASP 50 mmHg. Declined AICD and pacer in past. Elevated Troponin Chronic Systolic Heart failure H/O ischemic heart disease, , Chronic LBBB Chronic Dizziness-as per patient Elevated Troponin ? Secondary to COVID ECHO pending Cardiology following Continue metoprolol, losartan, Imdur, Inspra and Lasix Denies chest pain, SOB (4) COVID-19: Multifocal COVID pneumonia Hypoxia COVID Screen:positive--done on 03/29 --CTA: No evidence for pulmonary embolus with limitations as described above. Moderate cardiomegaly, unchanged. Small patchy groundglass airspace opacities within the base of the right middle lobe and right lower lobe. This could represent a developing pneumonia or dependent change. Procalcitonin: 0.05 Mild Troponin elevation CRP:3.02 Ferritin:428.9 Blood Cultures: No growth to date Started on Remdesivir, Dexamethasone given Sats dropped below 94% Patient currently not interested in Coalescent plasma Isolation precautions--Airborne/Contact Continue home Lasix Albuterol PRN Continue Supplemental Oxygen as needed Monitor LFTs, renal function while on Remdesivir Consider discontinuing empiric antibiotics as able (5) Lightheadedness: Chronic Dizziness as per patient c/o of lightheaded/pre syncope and fall check orthostatics Fall precautions (6) Paroxysmal atrial flutter: H/O aflutter s/p ablation continue metoprolol and warfarin INR sub therapeutic at 1.7 Continue warfarin continue SQ Lovenox until INR greater than 2 (7) T2DM (type 2 diabetes mellitus): Last A1c 7.0 03/31/20 Utilize Insulin Therapy while hospitalized Monitor BGs No tight glycemic control given elderly age (8) Hypertension: Bp stable Continue losartan, amlodipine, metoprolol, furosemide, eplerenone, Imdur Monitor (9) Dyslipidemia: continue statin (10) DVT prophylaxis: SQ Lovenox until INR > 2 continue warfarin Code Status Full Code Disposition: Expect to discharge home when medically stable Admission and Anticipated Discharge Date Admission Date: March 30, 2020 Subjective Patient is seen and examined at bedside Admits to having change in smell, taste Poor appetite since last 2 days Reports chronic cough since many years Denies dyspnea, chest pain, dizziness, nausea, abdominal pain, diarrhea Discussed with patient's daughter over the phone Offers no other complaints Review of Systems Review of Systems: All systems reviewed & are unremarkable except as noted in HPI & below Physical Exam Physical Exam: Physical Exam: Vitals signs as noted above General Appearance:Thin, Elderly, no apparent distress Head: normocephalic, Atraumatic Eyes: normal inspection, EOMI Neck: supple, Trachea midline Respiratory/Chest: Decreased breath sounds, CTA, No accessory muscle use Cardiovascular: S1, S2, No murmur Abdomen/GI:Soft, Non tender, Bowel sounds present Extremities/Musculoskelatal:normal inspection, no edema Neurologic/Psych:AAOX3, grossly no focal neurological deficits Skin: normal color, warm Results & Data Results & Data ([facility] [place]) Vital Signs (Past 12 Hours) Vital Signs Temp Pulse Pulse Resp BP BP Pulse Ox 03/31/20 15:28 37.2 C 77 20 128/67 94 03/31/20 14:30 72 03/31/20 11:20 37.0 C 77 19 137/66 91 03/31/20 07:29 36.8 C 72 20 107/56 L 94 03/31/20 07:00 72 Laboratory Results Short CBC 03/31/20 Range/Units 05:35 WBC 3.42 L (4.8-10.8) K/uL Hgb 12.9 L (14.0-18.0) g/dL Hct 38.8 L (42-52) % Plt Count 93 L (130-400) K/uL BMP 03/31/20 05:35 Sodium 139 Potassium 3.8 Chloride 105 Carbon Dioxide 30 BUN 33 H Creatinine 1.16 Glucose 104 H Calcium 7.9 L Cardiac Enzymes 03/30/20 03/31/20 03/31/20 Range/Units 19:11 00:54 05:35 Troponin I 0.088 H* 0.150 H* 0.161 H* (0-0.045) ng/ml Liver Function 03/31/20 Range/Units 05:35 Total Bilirubin 0.6 (0.2-1) mg/dl AST 42 H (15-37) U/L ALT 35 (12-78) U/L Alkaline Phosphatase 44 L (45-117) U/L Albumin 3.3 L (3.4-5.0) gm/dl
[2020-03-31] MEDS ORDERED: GLUCAGON FOR INJ 1 MG VIAL SQ PRN (18:48)
[2020-03-31] MEDS ORDERED: GLUCOSE 40% GEL 15 GM TUBE PO PRN (18:48)
[2020-03-31] MEDS ORDERED: DEXTROSE 50% 50 ML SYRINGE IV PRN (18:48)
[2020-03-31] MEDS ORDERED: CARBOHYDRATES FOR HYPOGLYCEMIA PO PRN (18:48)
[2020-03-31] MEDS ORDERED: GLUCOSE 10 TABS/TUBE PO PRN (18:48)
[2020-03-31] MEDS: SODIUM CHLORIDE 0.9% 500 ML IV SCH (18:52)
[2020-03-31] MEDS ORDERED: PHARMACY GLYCEMIC MGMT CONSULT PRN (19:36)
[2020-03-31] MEDS ORDERED: INSULIN GLARGINE SOLOSTAR 100 UNITS/ML 3 ML PEN SC SCH (21:00)
[2020-03-31] MEDS: QUEtiapine FUMARATE 25 MG TABLET PO SCH (21:31)
[2020-03-31] MEDS: INSULIN ASPART 100 UNITS/ML 3 ML PEN SC SCH (22:01)
[2020-03-31] MEDS ORDERED: INSULIN GLARGINE SOLOSTAR 100 UNITS/ML 3 ML PEN SC ONE (22:15)
[2020-04-01] MEDS: EPLERENONE: ORDER AWAITING ACTION SCH ×3 (00:18→15:48)
[2020-04-01] MEDS: LEVOTHYROXINE SODIUM 50 MCG TABLET PO SCH (06:40)
[2020-04-01] MEDS: ISOSORBIDE DINITRATE 10 MG TAB PO SCH ×2 (06:40→12:19)
[2020-04-01] MEDS: dexAMETHasone 6 MG in SYRINGE 0 ML IV SCH (08:57)
[2020-04-01] MEDS: FLUTICASONE FUROATE 100MCG 14 PUFFS/INHALER INH SCH (08:58)
[2020-04-01] MEDS: ASPIRIN 81 MG ECTAB PO SCH (08:58)
[2020-04-01] MEDS: ENOXAPARIN INJ 40 MG/0.4 ML SYR SQ SCH (08:58)
[2020-04-01] MEDS: DOXYCYCLINE HYCLATE 100 MG CAP PO SCH (08:59)
[2020-04-01] MEDS: FUROSEMIDE 20 MG TAB PO SCH (09:00)
[2020-04-01] MEDS: CHOLECALCIFEROL 1,000 UNITS 25 MCG TAB PO SCH (09:00)
[2020-04-01] MEDS: amLODIPine BESYLATE 5 MG TAB PO SCH (09:00)
[2020-04-01] MEDS: LOSARTAN POTASSIUM 25 MG TAB PO SCH ×2 (09:01→21:50)
[2020-04-01] MEDS: ZINC SULFATE 220 MG CAPSULE PO SCH (09:01)
[2020-04-01 09:03] LABS: Hematocrit (blood only) 42.6 % (42-52); Hemoglobin 13.7 g/dL (14.0-18.0); Mean Corpuscular Hemoglobin 29.1 pg (25-34); Mean Corpuscular Hgb Conc 32.2 g/dL (32-36); Mean Corpuscular Volume 90.4 fL (80-100); RDW Coefficient of Variation 14.6 % (11.5-14.5); RDW Standard Deviation 48.8 fL (36.4-46.3); Red Blood Count 4.71 M/uL (4.7-6.1)
[2020-04-01] MEDS: INSULIN ASPART 100 UNITS/ML 3 ML PEN SC SCH ×4 (09:12→23:51)
[2020-04-01 09:15] LABS: INR 2.3 (0.9-1.1); Prothrombin Time 23.4 Seconds (9.0-12.0)
[2020-04-01 09:18] LABS: Mean Platelet Volume 11.1 fL (7.4-10.4); Platelet Count 90 K/uL (130-400)
[2020-04-01 09:24] LABS: Lymphocytes # (auto) 0.42 K/uL (1.2-3.4); Lymphocytes % (auto) 17.5 %; Monocytes # (auto) 0.33 K/uL (0.11-0.59); Monocytes % (auto) 13.8 %; Neutrophils # (auto) 1.65 K/uL (1.4-6.5); Neutrophils % (auto) 68.7 %; RBC Morphology Unremarkable
[2020-04-01 09:50] LABS: BUN Creatinine Ratio 33.7 (10-20); C Reactive Protein 1.77 mg/dl (0-0.29); Calcium 8.5 mg/dl (8.5-10.1); Creatinine Clr Calc Pharmacy 38.8 ml/min; Est GFR (African American) 68.6; Est GFR (Non-African American) 59.2; Potassium 3.9 mmol/L (3.5-5.1)
[2020-04-01 09:55] LABS: Ferritin 619.2 ng/ml (8-388)
[2020-04-01] MEDS: FINASTERIDE 5 MG TAB PO SCH (12:19)
[2020-04-01] MEDS: REMDESIVIR 100 MG in SODIUM CHLORIDE 0.9% 230 ML IV SCH (12:19)
[2020-04-01] MEDS: OMEGA-3 (PURIFIED FISH OIL) 1 GM CAP PO SCH (12:19)
[2020-04-01] MEDS: SODIUM CHLORIDE 0.9% 10ML FLUSH IV SCH (12:23)
--- NOTE | 2020-04-01 13:17 | Pharmacy Report ---
Pharmacy Glycemic Short Note 2 - Date of Service April 01, 2020 - Glycemic Short BSG Results (Last 24 hours): 03/31/20 04/01/20 04/01/20 21:54 07:07 08:29 Glucose 141 H POC Glucose 194 H 139 H 04/01/20 10:40 Glucose POC Glucose 242 H OUTPATIENT ANTIDIABETIC REGIMEN: * n/a ASSESSMENT: * Type 2 diabetic admitted with COVID pneumonia. A1c ~7%. Currently not on any medications at home for diabetes * Started on steroids overnight. Insulin refused by patient last evening and also this morning. BSGs relatively stable 194-139 mg/dL this AM * Lunch time BSG trending up quickly to 240s likely related to steroids - Patient agreeable now to insulin / covered BSG with novolog, plan to add NPH to help with steroid coverage. * Plan to be less aggressive with insulin regimen given elderly age PLAN FOR INPATIENT GLYCEMIC CONTROL: * Hold outpatient oral diabetes medications * Basal insulin * NPH 20 units daily (with dexamethasone) ~0.3 units/kg * Bolus insulin * NovoLog per scale ACHS or Q6hrs while NPO * Goal Range: Low 120 mg/dL - High 160 mg/dL * Correction Factor: 30 mg/dL/unit * Nutritional / Prandial insulin per carb ratio of 1 unit per 10 grams CHO consumed
[2020-04-01] MEDS: INSULIN HUMAN NPH SC SCH (13:37)
[2020-04-01] MEDS: WARFARIN SOD 7.5 MG TAB PO SCH (15:48)
[2020-04-01] MEDS: ROSUVASTATIN CALCIUM 20 MG TAB PO SCH (15:48)
[2020-04-01] MEDS: METOPROLOL SUCC 25MG EXT REL TAB PO SCH (15:48)
[2020-04-01] MEDS ORDERED: WARFARIN SOD 7.5 MG TAB PO SCH (16:00)
--- NOTE | 2020-04-01 19:06 | Hospitalist Progress Note ---
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 Chronic CAD, HFrEF, multifactorial cardiomyopathy, last echocardiogram 2017 revealed EF 25%, basal and mid inferior hypokinesis, inferior wall motion normality, moderately dilated left ventricle, severe mitral valve insufficiency, PASP 50 mmHg. Declined AICD and pacer in past. Elevated Troponin Chronic Systolic Heart failure H/O ischemic heart disease, , Chronic LBBB Chronic Dizziness-as per patient Elevated Troponin ? Secondary to COVID ECHO findings reviewed with post acute care nurse--EF 30 to 35%. When compared to prior echo, subtle decline in left ventricle systolic function Appreciate Cardiology Input Continue metoprolol, losartan, Imdur, Inspra and Lasix Denies chest pain, SOB (4) COVID-19: Multifocal COVID pneumonia Hypoxia COVID Screen:positive--done on 03/29 --CTA: No evidence for pulmonary embolus with limitations as described above. Moderate cardiomegaly, unchanged. Small patchy groundglass airspace opacities within the base of the right middle lobe and right lower lobe. This could represent a developing pneumonia or dependent change. Procalcitonin: 0.05 Mild Troponin elevation CRP:3.02>1.77 Ferritin:428.9>619 Blood Cultures: No growth to date Continue Remdesivir, Dexamethasone Day #2 Patient currently not interested in Coalescent plasma Isolation precautions--Airborne/Contact Continue home Lasix Albuterol PRN Continue Supplemental Oxygen as needed Monitor LFTs, renal function while on Remdesivir Will DC empiric antibiotics Needs 2 step prior to discharge (5) Lightheadedness: Chronic Dizziness as per patient c/o of lightheaded/pre syncope and fall Fall precautions (6) Paroxysmal atrial flutter: H/O aflutter s/p ablation continue metoprolol INR sub therapeutic on presentation INR: 1.7>2.3 Continue warfarin (7) T2DM (type 2 diabetes mellitus): Last A1c 7.0 03/31/20 Utilize Insulin Therapy while hospitalized Monitor BGs No tight glycemic control given elderly age (8) Hypertension: Bp stable Continue losartan, amlodipine, metoprolol, furosemide, eplerenone, Imdur Monitor (9) Dyslipidemia: continue statin (10) DVT prophylaxis: On warfarin Code Status Full Code Disposition: Expect to discharge home when medically stable Admission and Anticipated Discharge Date Admission Date: March 30, 2020 Subjective Patient is seen and examined at bedside Reports sore throat but refuses medications for it No other complaints Anxious to get discharged Reports chronic cough since many years Denies dyspnea, chest pain, dizziness, nausea, abdominal pain, diarrhea Saturating 93-96 % on RA Review of Systems Review of Systems: All systems reviewed & are unremarkable except as noted in HPI & below Physical Exam Physical Exam: Physical Exam: Vitals signs as noted above General Appearance:Thin, Elderly, no apparent distress Head: normocephalic, Atraumatic Eyes: normal inspection, EOMI Neck: supple, Trachea midline Respiratory/Chest: Decreased breath sounds, CTA, No accessory muscle use Cardiovascular: S1, S2, No murmur Abdomen/GI:Soft, Non tender, Bowel sounds present Extremities/Musculoskelatal:normal inspection, no edema Neurologic/Psych:AAOX3, grossly no focal neurological deficits Skin: normal color, warm Results & Data Results & Data ([facility]) Vital Signs (Past 12 Hours) Vital Signs Temp Pulse Resp BP BP Pulse Ox 04/01/20 15:40 36.8 C 72 16 141/70 H 93 04/01/20 12:03 36.9 C 75 18 145/77 H 94 04/01/20 07:38 36.4 C L 84 20 115/67 96 Laboratory Results Short CBC 04/01/20 Range/Units 08:29 WBC 2.40 L (4.8-10.8) K/uL Hgb 13.7 L (14.0-18.0) g/dL Hct 42.6 (42-52) % Plt Count 90 L (130-400) K/uL BMP 04/01/20 08:29 Sodium 141 Potassium 3.9 Chloride 108 H Carbon Dioxide 28 BUN 37 H Creatinine 1.10 Glucose 141 H Calcium 8.5
[2020-04-01] MEDS: QUEtiapine FUMARATE 25 MG TABLET PO SCH (21:50)
[2020-04-02] MEDS: EPLERENONE: ORDER AWAITING ACTION SCH ×2 (01:20→08:34)
[2020-04-02] MEDS: LEVOTHYROXINE SODIUM 50 MCG TABLET PO SCH (06:31)
[2020-04-02] MEDS: ISOSORBIDE DINITRATE 10 MG TAB PO SCH ×2 (06:31→12:48)
[2020-04-02 07:54] LABS: Hematocrit (blood only) 41.5 % (42-52); Hemoglobin 13.7 g/dL (14.0-18.0); Mean Corpuscular Hemoglobin 29.6 pg (25-34); Mean Corpuscular Volume 89.6 fL (80-100); RDW Coefficient of Variation 14.5 % (11.5-14.5); RDW Standard Deviation 47.4 fL (36.4-46.3); Red Blood Count 4.63 M/uL (4.7-6.1); White Blood Count 3.93 K/uL (4.8-10.8)
[2020-04-02 08:15] LABS: INR 3.7 (0.9-1.1); Prothrombin Time 36.3 Seconds (9.0-12.0)
[2020-04-02 08:26] LABS: BUN Creatinine Ratio 44.4 (10-20); Calcium 8.9 mg/dl (8.5-10.1); Creatinine Clr Calc Pharmacy 50.2 ml/min; Est GFR (African American) 89.5; Est GFR (Non-African American) 77.3; Potassium 3.4 mmol/L (3.5-5.1)
[2020-04-02 08:33] LABS: Mean Platelet Volume 10.5 fL (7.4-10.4); Platelet Count 96 K/uL (130-400)
[2020-04-02] MEDS: INSULIN ASPART 100 UNITS/ML 3 ML PEN SC SCH ×2 (08:34→12:30)
[2020-04-02] MEDS: dexAMETHasone 6 MG in SYRINGE 0 ML IV SCH (08:35)
[2020-04-02] MEDS: FLUTICASONE FUROATE 100MCG 14 PUFFS/INHALER INH SCH (08:35)
[2020-04-02] MEDS: LOSARTAN POTASSIUM 25 MG TAB PO SCH (08:35)
[2020-04-02] MEDS: ZINC SULFATE 220 MG CAPSULE PO SCH (08:36)
[2020-04-02] MEDS: FUROSEMIDE 20 MG TAB PO SCH (08:36)
[2020-04-02] MEDS: INSULIN HUMAN NPH SC SCH (08:36)
[2020-04-02] MEDS: amLODIPine BESYLATE 5 MG TAB PO SCH (08:36)
[2020-04-02] MEDS: ASPIRIN 81 MG ECTAB PO SCH (08:36)
[2020-04-02] MEDS: CHOLECALCIFEROL 1,000 UNITS 25 MCG TAB PO SCH (08:36)
[2020-04-02 08:47] LABS: Lymphocytes # (auto) 0.66 K/uL (1.2-3.4); Lymphocytes % (auto) 16.8 %; Monocytes # (auto) 0.58 K/uL (0.11-0.59); Monocytes % (auto) 14.8 %; Neutrophils # (auto) 2.69 K/uL (1.4-6.5); Neutrophils % (auto) 68.4 %
[2020-04-02] MEDS ORDERED: POTASSIUM CHLORIDE CRTAB 20 MEQ TABCR PO ONE (08:57)
[2020-04-02] MEDS: FINASTERIDE 5 MG TAB PO SCH (12:47)
[2020-04-02] MEDS: REMDESIVIR 100 MG in SODIUM CHLORIDE 0.9% 230 ML IV SCH (12:47)
[2020-04-02] MEDS: OMEGA-3 (PURIFIED FISH OIL) 1 GM CAP PO SCH (12:47)
[2020-04-02] MEDS: SODIUM CHLORIDE 0.9% 10ML FLUSH IV SCH (12:52)
--- NOTE | 2020-04-02 13:26 | Hospitalist Progress Note ---
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 Chronic CAD, HFrEF, multifactorial cardiomyopathy, last echocardiogram 2017 revealed EF 25%, basal and mid inferior hypokinesis, inferior wall motion normality, moderately dilated left ventricle, severe mitral valve insufficiency, PASP 50 mmHg. Declined AICD and pacer in past. Elevated Troponin Chronic Systolic Heart failure H/O ischemic heart disease, , Chronic LBBB Chronic Dizziness-as per patient Elevated Troponin ? Secondary to COVID ECHO findings reviewed with hand splitter--EF 30 to 35%. When compared to prior echo, subtle decline in left ventricle systolic function Appreciate Cardiology Input Continue metoprolol, losartan, Imdur, Inspra and Lasix Denies chest pain, SOB (4) COVID-19: Multifocal COVID pneumonia Hypoxia COVID Screen:positive--done on 03/29 --CTA: No evidence for pulmonary embolus with limitations as described above. Moderate cardiomegaly, unchanged. Small patchy groundglass airspace opacities within the base of the right middle lobe and right lower lobe. This could represent a developing pneumonia or dependent change. Procalcitonin: 0.05 Mild Troponin elevation CRP:3.02>1.77 Ferritin:428.9>619 Blood Cultures: No growth to date Received Remdesivir, Dexamethasone Day #3 Patient currently not interested in Coalescent plasma Isolation precautions--Airborne/Contact Continue home Lasix Albuterol PRN Continue Supplemental Oxygen as needed Monitor LFTs, renal function while on Remdesivir Empiric antibiotics discontinued 2 step: Did not qualify for home oxygen (5) Lightheadedness: Chronic Dizziness as per patient c/o of lightheaded/pre syncope and fall Fall precautions (6) Paroxysmal atrial flutter: H/O aflutter s/p ablation continue metoprolol INR sub therapeutic on presentation INR: 1.7>2.3>3.7 Denies any bleeding issues Hold warfarin Advised to follow up with Coumadin clinic upon discharge (7) T2DM (type 2 diabetes mellitus): Last A1c 7.0 03/31/20 Utilize Insulin Therapy while hospitalized Monitor BGs No tight glycemic control given elderly age Patient interested in starting any new medications (8) Hypertension: Bp stable Continue losartan, amlodipine, metoprolol, furosemide, eplerenone, Imdur Monitor (9) Dyslipidemia: continue statin (10) DVT prophylaxis: On warfarin Code Status Full Code Disposition: Expect to discharge home today Admission and Anticipated Discharge Date Admission Date: March 30, 2020 Subjective Patient is seen and examined at bedside Sore throat, appetite slightly better today No new complaints Eager to get discharged 2 step: Did not qualify for home oxygen Reports chronic cough since many years Denies dyspnea, chest pain, dizziness, nausea, abdominal pain, diarrhea Saturating 96 % on RA Review of Systems Review of Systems: All systems reviewed & are unremarkable except as noted in HPI & below Physical Exam Physical Exam: Physical Exam: Vitals signs as noted above General Appearance:Thin, Elderly, no apparent distress Head: normocephalic, Atraumatic Eyes: normal inspection, EOMI Neck: supple, Trachea midline Respiratory/Chest: Decreased breath sounds, CTA, No accessory muscle use Cardiovascular: S1, S2, No murmur Abdomen/GI:Soft, Non tender, Bowel sounds present Extremities/Musculoskelatal:normal inspection, no edema Neurologic/Psych:AAOX3, grossly no focal neurological deficits Skin: normal color, warm Results & Data Results & Data ([facility] [place]) Vital Signs (Past 12 Hours) Vital Signs Temp Pulse Pulse Pulse Pulse Resp Resp 04/02/20 11:29 36.4 C L 63 19 04/02/20 08:13 72 70 68 18 04/02/20 07:13 36.5 C 55 L 16 04/02/20 03:24 36.6 C 68 16 Resp Resp BP BP Pulse Ox Pulse Ox Pulse Ox 04/02/20 11:29 130/62 96 04/02/20 08:13 18 18 94 95 04/02/20 07:13 157/60 H 93 04/02/20 03:24 149/80 H 95 Pulse Ox 04/02/20 11:29 04/02/20 08:13 95 04/02/20 07:13 04/02/20 03:24 Laboratory Results Short CBC 04/02/20 Range/Units 07:06 WBC 3.93 L (4.8-10.8) K/uL Hgb 13.7 L (14.0-18.0) g/dL Hct 41.5 L (42-52) % Plt Count 96 L (130-400) K/uL BMP 04/02/20 07:06 Sodium 143 Potassium 3.4 L Chloride 109 H Carbon Dioxide 25 BUN 38 H Creatinine 0.85 Glucose 110 H Calcium 8.9 Liver Function 04/02/20 Range/Units 07:06 AST 51 H (15-37) U/L ALT 39 (12-78) U/L
--- NOTE | 2020-04-02 13:37 | Discharge Summary ---
Date of Service April 02, 2020 Admission HPI Per Admitting Provider This is an 89-year-old male who has significant past medical history of multivessel CAD, chronic HFrEF with EF 20-25%, HTN, HLD, chronic LBBB, history of a flutter status post ablation on warfarin, T2DM, parkinsonism, vascular dementia, RLS who presents to ED after a positive COVID-19 test on 03/29 secondary to fever, cough, dizziness and lightheadedness. He is unsure when symptoms started but does admit to losing sense of taste and smell approximately 1 week ago. He has lost approximately 8 pounds in the past month. He states he had an appointment at the [facility] on 03/28 and was doing well. When he came home to work in his garage he overall felt hot. He went and took his took his temp which was 102.1. He also has been experiencing chills, sweats and was febrile today. Further complains of chills and sweats at night, clear phlegm productive cough which is chronic for him, CISNEROS, L sided chest discomfort. Chest discomfort moves around, comes and go, worse with deep breath, worse with touch. He took APAP for fever. When he woke up this morning he got up to get out of bed and when he was walking he felt very lightheaded and dizzy like he was going to pass out. He went to his recliner to sit down and when he tried to get up and walk again he felt lightheaded. He took his blood pressure which read a BP of 58/54, but he is unsure if this was working right. Due to lightheadedness and dizziness daughter was concerned and called PCP. He was recommended to seek ED. In ED he is remained hemodynamically stable and has actually been hypertensive. He is not requiring supplemental oxygen. Chest CTA was negative for PE but does show development of small patchy ground glass opacities in the base of the right middle and right lower lobe. He admits to falling and feeling faint. No injury. Head CT and Cspine CT negative for acute abnormality as well as CT abd/pelvis. Unfortunately pt does have elevation of his troponin, but denies chest pain. EKG is unchanged compared to prior. Principal Diagnosis Multifocal COVID 19 pneumonia Elevated Troponin Discharge Data Allergies Allergy/AdvReac Type Severity Reaction Status Date / Time grass pollen-perennial rye, Allergy Unknown UNKNOWN Unverified 03/30/20 13:54 standar mold Allergy Unknown UNKNOWN Unverified 03/30/20 13:54 Penicillins Allergy Unknown UNKNOWN-HAPPENED Unverified 03/30/20 13:54 WHEN HE WAS CHILD Dust Allergy Unknown UNKNOWN Uncoded 03/30/20 13:54 Consultations 03/30/20 16:21 ED Decision to Admit Stat 03/30/20 19:53 Consult Cardiology Routine Consult Case Management - Discharge Planning Routine Ordered Studies 03/30/20 13:24 CT abd pelvis IV con only Stat CT cervical spine wo con Stat CT head/brain wo con Stat 03/30/20 14:53 CT angio chest PE protocol Stat Hospital Course (1) 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 Chronic CAD, HFrEF, multifactorial cardiomyopathy, last echocardiogram 2017 revealed EF 25%, basal and mid inferior hypokinesis, inferior wall motion normality, moderately dilated left ventricle, severe mitral valve insufficiency, PASP 50 mmHg. Declined AICD and pacer in past. Elevated Troponin Chronic Systolic Heart failure H/O ischemic heart disease, , Chronic LBBB Chronic Dizziness-as per patient Elevated Troponin ? Secondary to COVID ECHO findings reviewed with certified detention deputy--EF 30 to 35%. When compared to prior echo, subtle decline in left ventricle systolic function Appreciate Cardiology Input Continue metoprolol, losartan, Imdur, Inspra and Lasix Denies chest pain, SOB (4) COVID-19: Multifocal COVID pneumonia Hypoxia COVID Screen:positive--done on 03/29 --CTA: No evidence for pulmonary embolus with limitations as described above. Moderate cardiomegaly, unchanged. Small patchy groundglass airspace opacities within the base of the right middle lobe and right lower lobe. This could represent a developing pneumonia or dependent change. Procalcitonin: 0.05 Mild Troponin elevation CRP:3.02>1.77 Ferritin:428.9>619 Blood Cultures: No growth to date Received Remdesivir, Dexamethasone Day #3 Patient currently not interested in Coalescent plasma Isolation precautions--Airborne/Contact Continue home Lasix Albuterol PRN Continue Supplemental Oxygen as needed Monitor LFTs, renal function while on Remdesivir Empiric antibiotics discontinued 2 step: Did not qualify for home oxygen (5) Lightheadedness: Chronic Dizziness as per patient c/o of lightheaded/pre syncope and fall Fall precautions (6) Paroxysmal atrial flutter: H/O aflutter s/p ablation continue metoprolol INR sub therapeutic on presentation INR: 1.7>2.3>3.7 Denies any bleeding issues Hold warfarin Advised to follow up with Coumadin clinic upon discharge (7) T2DM (type 2 diabetes mellitus): Last A1c 7.0 03/31/20 Utilize Insulin Therapy while hospitalized Monitor BGs No tight glycemic control given elderly age Patient interested in starting any new medications (8) Hypertension: Bp stable Continue losartan, amlodipine, metoprolol, furosemide, eplerenone, Imdur Monitor (9) Dyslipidemia: continue statin (10) DVT prophylaxis: On warfarin Code Status Full Code Disposition: Expect to discharge home today Discharge Plan Discharge Items Patient Disposition: Home - Home Health Services Reason For Visit: COVID PNA, ELEVATED TROPONIN Discharge Diagnosis: Multifocal COVID 19 pneumonia Elevated Troponin Activity: Per Instructions section Lifting: Wait until after follow-up appointment Exercise/Sports: Gradually increase as tolerated Non-emergency contact: Primary Care Provider and Meter Reader Call non-emergency contact if: you have any medication questions, your symptoms worsen, your pain is not controlled, your pain is worsening, your pain is unusual for you, your pain is concerning for you and you have a fever Follow-up/Referrals: Laura Mcmahon MD [Primary Care Provider] - Diet: Carb Consistent or DM2 Addtl Attending Provider Instructions: Follow-up with your primary care physician in 1 week as advised Follow up with your Meter Reader Moisés Bell PA-C in 3-4 weeks as advised Follow up with Coumadin clinic on 04/04/20 for management of your PT/INT and your Coumadin dosing Your PT/INR today (04/02/20) is 3.7. DO NOT TAKE COUMADIN TODAY AND TOMORROW (04/02/20 AND 04/03/20). Get Blood Test (PT/INR) on 04/04/20 and follow up with coumadin clinic/Primary care physician for further instructions. Your Final blood Cultures are pending at the time of discharge. Follow up with your Physician for results. Seek immediate medical attention if your symptoms reoccur or worsen Home Isolation COVID-19 Instructions The following information about Home Isolation is from the CDC Website: https://www.cdc.gov/coronavirus/2019-ncov/hcp/qihpntxm-yylrvce-jwxwia.html Stay home except to get medical care People who are mildly ill with COVID-19 are able to isolate at home during their illness. You should restrict activities outside your home, except for getting medical care. Do not go to work, school, or public areas. Avoid using public transportation, ride-sharing, or taxis. Separate yourself from other people and animals in your home People: As much as possible, you should stay in a specific room and away from other people in your home. Also, you should use a separate bathroom, if available. Animals: You should restrict contact with pets and other animals while you are sick with COVID-19, just like you would around other people. Although there have not been reports of pets or other animals becoming sick with COVID-19, it is still recommended that people sick with COVID-19 limit contact with animals until more information is known about the virus. When possible, have another member of your household care for your animals while you are sick. If you are sick with COVID-19, avoid contact with your pet, including petting, snuggling, being kissed or licked, and sharing food. If you must care for your pet or be around animals while you are sick, wash your hands before and after you interact with pets and wear a face mask. Call ahead before visiting your doctor If you have a medical appointment, call the healthcare provider and tell them that you have or may have COVID-19. This will help the healthcare providers office take steps to keep other people from getting infected or exposed. Wear a face mask You should wear a face mask when you are around other people (e.g., sharing a room or vehicle) or pets and before you enter a healthcare providers office. If you are not able to wear a face mask (for example, because it causes trouble breathing), then people who live with you should not stay in the same room with you, or they should wear a face mask if they enter your room. Cover your coughs and sneezes Cover your mouth and nose with a tissue when you cough or sneeze. Throw used tissues in a lined trash can. Immediately wash your hands with soap and water for at least 20 seconds or, if soap and water are not available, clean your hands with an alcohol-based hand animal killer that contains at least 60% alcohol. Clean your hands often Wash your hands often with soap and water for at least 20 seconds, especially after blowing your nose, coughing, or sneezing; going to the bathroom; and before eating or preparing food. If soap and water are not readily available, use an alcohol-based hand animal killer with at least 60% alcohol, covering all surfaces of your hands and rubbing them together until they feel dry. Soap and water are the best option if hands are visibly dirty. Avoid touching your eyes, nose, and mouth with unwashed hands. Avoid sharing personal household items You should not share dishes, drinking glasses, cups, eating utensils, towels, or bedding with other people or pets in your home. After using these items, they should be washed thoroughly with soap and water. Clean all high-touch surfaces everyday High touch surfaces include counters, tabletops, doorknobs, bathroom fixtures, toilets, phones, keyboards, tablets, and bedside tables. Also, clean any surfaces that may have blood, stool, or body fluids on them. Use a household cleaning spray or wipe, according to the label instructions. Labels contain instructions for safe and effective use of the cleaning product including precautions you should take when applying the product, such as wearing gloves and making sure you have good ventilation during use of the product. Monitor your symptoms Seek prompt medical attention if your illness is worsening (e.g., difficulty breathing).Beforeseeking care, call your healthcare provider and tell them that you have, or are being evaluated for, COVID-19. Put on a face mask before you enter the facility. These steps will help the healthcare providers office to keep other people in the office or waiting room from getting infected or exposed. Ask your healthcare provider to call the local or state health department. Persons who are placed under active monitoring or facilitated self- monitoring should follow instructions provided by their local health department or occupational health professionals, as appropriate. When working with your local health department check their available hours. If you have a medical emergency and need to call 911, notify the dispatch personnel that you have, or are being evaluated for COVID-19. If possible, put on a face mask before emergency medical services arrive. Discontinuing home isolation Patients with confirmed COVID-19 should remain under home isolation precautions until the risk of secondary transmission to others is thought to be low. The decision to discontinue home isolation precautions should be made on a [id number] basis, in consultation with healthcare providers and state and local health departments. Coronavirus disease 2019 (COVID-19) is a virus that causes a respiratory illness. It is caused by a coronavirus called 2019 novel coronavirus (2019- nCoV). There are many types of coronavirus. Coronaviruses are a very common cause of bronchitis. They may sometimes cause lung infection(pneumonia). Symptoms can range from mild to severe respiratory illness. These viruses are also foundin some animals. COVID-19 was first found in people in [facility], in late 2018. In 2020, several cases of COVID-19 have been confirmed in the [place] Public health officials are working to find the source. How the virus spreads is not yet fully known. It may be spread through droplets of fluid that a person coughs or sneezes into the air. It may be spread if you touch a surface with virus on it, such as a handle or object, and then touch your mouth. What are the symptoms of COVID-19? Some people have no symptoms or mild symptoms. Symptoms may appear 2 to 14 days after contact with the virus. Symptoms can include: Fever Coughing Trouble breathing What are possible complications from COVID-19? In many cases, this virus can cause infection (pneumonia) in both lungs. In some cases, this can cause . How is COVID-19 diagnosed? Your healthcare provider will ask about your symptoms. He or she will also ask about your recent travel and contact with sick people. Testing for the virus is only done through the CDC. If yourhealthcare provider thinks you may have COVID- 19, he or she will work with your local health department and the CDC on testing. Follow all instructions from your healthcare provider. COVID-19 is diagnosed by: Nasal and throat swab. A cotton-tipped swab is wiped inside your nose or throat. This is done to check for viruses in your nasal mucus. Sputum culture. A small sample of mucus coughed from your lungs (sputum) is collected if you have a cough. It is checked for the virus. How is COVID-19 treated? There is currently no medicine to treat the virus. Treatment is done to help your body while it fights the virus. This is known as supportive care. Supportive care may include: Pain medicine. These include acetaminophen and ibuprofen. They are used to help ease pain and reduce fever. Bed rest. This helps your body fight the illness. For severe illness, you may need to stay in the hospital. Care during severe illness may include: IV (intravenous) fluids.These are given through a vein to help keep your body hydrated. Oxygen. Supplemental oxygen or ventilation with a breathing machine (ventilator) may be given. This is done to keep enough oxygen in your body. Are you at risk for COVID-19? If youve been to a place where people have been sick with this virus, you are at risk for infection. You are at risk if you: Recently traveled to an affected area Had contact with a sick person who recently traveled to this area Had contact with a person who was diagnosed with COVID-19 How can COVID-19 be prevented? There is no vaccine yet. The best prevention is to not have contact with the virus. The CDC advises that people should not travel to areas where there are COVID-19 outbreaks right now for any reason that is not urgent. To help prevent spreading the infection, wash your hands often, or use an alcohol-basedhand animal killer. If you are in an area with COVID-19: Wash your hands often. Or use an alcohol-based hand animal killer often. Only touch your eyes, nose, or mouth with clean hands. Dont have contact with people who are sick. Follow local instructions about being in public. For example, you may be told to not use public transport for a period of time. Stay away from markets that have live or animals. Wash your hands after touching any animals. Don't touch animals that may be sick. Dont share eating or drinking tools with sick people. Dont kiss someone who is sick. Clean surfaces often with disinfectant. If you were in an area with COVID-19 in the last 14 days: Call your healthcare provider. He or she can talk with local health staff to see what action may be needed. Follow all instructions from your provider. Take your temperature every morning and evening for at least 14 days. This is to check for fever. Keep a record of the readings. Keep watch for symptoms of the virus. Tell your provider right away if you have symptoms. If you were in an area with COVID-19 and have a fever or other symptoms: Dont panic. Keep in mind that other illnesses can cause similar symptoms. Stay away from work, school, and public places. Limit physical contact with family members. Don't kiss anyone or share eating or drinking utensils. Clean surfaces you touch with disinfectant. This is to help prevent the virus from spreading. Call your healthcare provider. Explain that you have been exposed to COVID-19 and have symptoms. Do this before going to any hospital. Wait for instructions. Keep in mind that healthcare staff may wear protective equipment such as masks, gowns, gloves, and eye protection. You may be put in a separate room. This is to prevent the possible virus from spreading. Tell the healthcare staff about recent travel. This includes local travel on public transport. Staff may need to find other people you have been in contact with. Follow all instructions the healthcare staff give you. If you have been diagnosed with COVID-19 Follow all instructions from your healthcare provider. Dont leave your home, except to get medical care. Call your healthcare providers office before going. They can prepare and give you instructions. This will help prevent the virus from spreading. Dont go to work, school, or public areas. Dont use public transport or taxis. Stay away from other people in your home. Have them wear face masks around you. Dont share household items or food. Wear a face mask if you can. This includes at home or in a medical facility. Cover your face with a tissue when you cough or sneeze. Throw the tissue away. Wash your hands. Wash your hands often. Caregivers should: Follow all instructions from healthcare staff. Wear a face mask and protective clothing as advised. Wash hands often. Keep track of the sick persons symptoms. Clean surfaces, fabrics, and laundry thoroughly. Keep other people away from the sick person. When to call your healthcare provider Call your healthcare provider: If youve recently traveled and have symptoms If you have been diagnosed with COVID-19 and your symptoms are worse To learn more To find out more about COVID-19, visit the CDC website at www.cdc.gov/coronavirus/2019-ncov/index.html. 9971-7349 [employer] [place] [address]. All rights reserved. This information is not intended as a substitute for professional medical care. Always follow your healthcare professional's instructions. This information has been adapted from [employer] Pending Studies at Discharge: Yes Studies:: Blood Cultures Stand-Alone Forms: My [facility] [employer] ([employer]), Smoking Cessation Medications and DC Order Prescriptions: Continued isosorbide dinitrate 10 mg tablet 10 mg PO BID RF: 0 amlodipine 5 mg tablet 5 mg PO QAM RF: 0 metoprolol succinate 25 mg tablet extended release 24 hr 12.5 mg PO QDD RF: 0 finasteride 5 mg Tablet 5 mg PO QDL RF: 0 omega [id number]-fish oil [Fish Oil] 1,000 mg (120 mg-180 mg) Capsule 1 cap PO QDL RF: 0 Ocuvite Adult 50 Plus 250-5-1 mg Capsule 1 cap PO QAM RF: 0 quetiapine 25 mg tablet 25 mg PO HS RF: 0 loratadine 10 mg Tablet 10 mg PO DAILY PRN (Reason: Allergy Symptoms) RF: 0 Arnuity Ellipta 100 mcg/actuation blister with device 1 inh inhalation DAILY RF: 0 furosemide 40 mg Tablet 20 mg PO QAM RF: 0 warfarin 7.5 mg Tablet 7.5 mg PO TUSA RF: 0 aspirin [Aspirin Low Dose] 81 mg Tablet,Delayed Release (Dr/Ec) 81 mg PO QAM RF: 0 levothyroxine 50 mcg Tablet 50 mcg PO DAILY RF: 0 warfarin 5 mg Tablet 5 mg PO SUMOWETHFR RF: 0 losartan 25 mg Tablet 25 mg PO BID RF: 0 eplerenone [Inspra] 25 mg Tablet 12.5 mg PO QAM RF: 0 rosuvastatin 40 mg Tablet 40 mg PO QDD RF: 0 coenzyme Q10 100 mg Tablet 100 mg PO QDL RF: 0 Discharge Orders: Discharge Order (Routine); Ordered 04/02/20 Ordered By: Cruz Gomez/Other Patient Handouts: A1C Admission Data Admit Date/Time: 03/30/20 16:44 Attending Provider: Cruz Iglesias Admit Provider: Lolita Ortega Primary Care Provider: Laura Mcmahon Other Providers: Lolita Ortega ; Cameron Sanchez Other Interventions: Discharge Summary Assessment (RN) Last Done: 04/02/20 13:20
--- NOTE | 2020-04-02 16:27 | Discharge Summary ---
Date of Service April 02, 2020 Admission HPI Per Admitting Provider Chief Complaint: +COVID-19, dizziness/lightheaded and low BP x 1 day. Primary Care Provider: Laura Mcmahon MD This is an 89-year-old male who has significant past medical history of multivessel CAD, chronic HFrEF with EF 20-25%, HTN, HLD, chronic LBBB, history of a flutter status post ablation on warfarin, T2DM, parkinsonism, vascular dementia, RLS who presents to ED after a positive COVID-19 test on 03/29 se condary to fever, cough, dizziness and lightheadedness. He is unsure when symptoms started but does admit to losing sense of taste and smell approximately 1 week ago. He has lost approximately 8 pounds in the past month. He states he had an appointment [facility] on 03/28 and was doing well. When he came home to work in his garage he overall felt hot. He went and took his took his temp which was 102.1. He also has been experiencing chills, sweats and was febrile today. Further complains of chills and sweats at night, clear phlegm productive cough which is chronic for him, CISNEROS, L sided chest discomfort. Chest discomfort moves around, comes and go, worse with deep breath, worse with touch. He took APAP for fever. When he woke up this morning he got up to get out of bed and when he was walking he felt very lightheaded and dizzy like he was going to pass out. He went to his recliner to sit down and when he tried to get up and walk again he felt lightheaded. He took his blood pressure which read a BP of 58/54, but he is unsure if this was working right. Due to lightheadedness and dizziness daughter was concerned and called PCP. He was recommended to seek ED. In ED he is remained hemodynamically stable and has actually been hypertensive. He is not requiring supplemental oxygen. Chest CTA was negative for PE but does show development of small patchy ground glass opacities in the base of the right middle and right lower lobe. He admits to falling and feeling faint. No injury. Head CT and Cspine CT negative for acute abnormality as well as CT abd/pelvis. Unfortunately pt does have elevation of his troponin, but denies chest pain. EKG is unchanged compared to prior. Admission Exam Per Admitting Provider General- No acute distress Head- atraumatic Eyes- PERRL, EOMI, ENT- oropharynx clear Neck- supple, no JVD Lungs- clear to auscultation Heart- No murmur Abdomen- normal bowel sounds, soft, nontender Extremities- no calf tenderness, No edema Neuro- alert, oriented x 3; PERRL, EOMI; no facial palsy; no dysarthria Skin- warm & dry Principal Diagnosis Multifocal COVID 19 pneumonia Elevated Troponin Discharge Data Allergies Allergy/AdvReac Type Severity Reaction Status Date / Time grass pollen-perennial rye, Allergy Unknown UNKNOWN Unverified 03/30/20 13:54 standar mold Allergy Unknown UNKNOWN Unverified 03/30/20 13:54 Penicillins Allergy Unknown UNKNOWN-HAPPENED Unverified 03/30/20 13:54 WHEN HE WAS CHILD Dust Allergy Unknown UNKNOWN Uncoded 03/30/20 13:54 Consultations 03/30/20 16:21 ED Decision to Admit Stat 03/30/20 19:53 Consult Cardiology Routine Consult Case Management - Discharge Planning Routine Procedures Performed CTA: No evidence for pulmonary embolus with limitations as described above. Moderate cardiomegaly, unchanged. Small patchy groundglass airspace opacities within the base of the right middle lobe and right lower lobe. This could represent a developing pneumonia or dependent change. 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 Chronic CAD, HFrEF, multifactorial cardiomyopathy, last echocardiogram 2016 revealed EF 25%, basal and mid inferior hypokinesis, inferior wall motion normality, moderately dilated left ventricle, severe mitral valve insufficiency, PASP 50 mmHg. Declined AICD and pacer in past. Elevated Troponin Chronic Systolic Heart failure H/O ischemic heart disease, , Chronic LBBB Chronic Dizziness-as per patient Elevated Troponin ? Secondary to COVID ECHO findings reviewed with machined parts metal sprayer--EF 30 to 35%. When compared to prior echo, subtle decline in left ventricle systolic function Appreciate Cardiology Input Continue metoprolol, losartan, Imdur, Inspra and Lasix Denies chest pain, SOB (4) COVID-19: Multifocal COVID pneumonia Hypoxia COVID Screen:positive--done on 03/29 --CTA: No evidence for pulmonary embolus with limitations as described above. Moderate cardiomegaly, unchanged. Small patchy groundglass airspace opacities within the base of the right middle lobe and right lower lobe. This could represent a developing pneumonia or dependent change. Procalcitonin: 0.05 Mild Troponin elevation CRP:3.02>1.77 Ferritin:428.9>619 Blood Cultures: No growth to date Received Remdesivir, Dexamethasone Day #3 Patient currently not interested in Coalescent plasma Isolation precautions--Airborne/Contact Continue home Lasix Albuterol PRN Continue Supplemental Oxygen as needed Monitor LFTs, renal function while on Remdesivir Empiric antibiotics discontinued 2 step: Did not qualify for home oxygen (5) Lightheadedness: Chronic Dizziness as per patient c/o of lightheaded/pre syncope and fall Fall precautions (6) Paroxysmal atrial flutter: H/O aflutter s/p ablation continue metoprolol INR sub therapeutic on presentation INR: 1.7>2.3>3.7 Denies any bleeding issues Hold warfarin Advised to follow up with Coumadin clinic upon discharge (7) T2DM (type 2 diabetes mellitus): Last A1c 7.0 03/31/20 Utilize Insulin Therapy while hospitalized Monitor BGs No tight glycemic control given elderly age Patient interested in starting any new medications (8) Hypertension: Bp stable Continue losartan, amlodipine, metoprolol, furosemide, eplerenone, Imdur Monitor (9) Dyslipidemia: continue statin (10) DVT prophylaxis: On warfarin Code Status Full Code Disposition: Expect to discharge home today Total Time Total Time Spent Total Time Spent (In Minutes): 50 minutes Discharge Plan Discharge Items Patient Disposition: Home - Home Health Services Reason For Visit: COVID PNA, ELEVATED TROPONIN Discharge Diagnosis: Multifocal COVID 19 pneumonia Elevated Troponin Activity: Per Instructions section Lifting: Wait until after follow-up appointment Exercise/Sports: Gradually increase as tolerated Non-emergency contact: Primary Care Provider and Curtain Cleaner Call non-emergency contact if: you have any medication questions, your symptoms worsen, your pain is not controlled, your pain is worsening, your pain is unusual for you, your pain is concerning for you and you have a fever Follow-up/Referrals: Laura Mcmahon MD [Primary Care Provider] - 04/10/20 3:00 pm (Please follow up with Dr. Mcmahon on Friday04/10/2020 at 3:00 pm. Please arrive to the office 15 minutes early for your appointment. If you are unable to keep this appointment, please call the office to reschedule at [phone].) Moisés Bell [Physician Application Developer] - 04/24/20 3:00 pm (Please follow up with Moisés Bell PA-C on Friday04/24/2020 at 3:00 pm. Please arrive to the office 15 minutes early for your appointment. If you are unable to keep this appointment, please call the office to reschedule at [phone].) Diet: Carb Consistent or DM2 Ambulatory Orders: Prothrombin Time INR (Timed) Timeframe: [id number] Location: Determined by Patient Ordered By: Cruz Dye Attending Provider Instructions: Follow-up with your primary care physician in 1 week as advised Follow up with your Curtain Cleaner Moisés Bell PA-C in 3-4 weeks as advised Follow up with Coumadin clinic on 04/04/20 for management of your PT/INT and your Coumadin dosing Your PT/INR today (04/02/20) is 3.7. DO NOT TAKE COUMADIN TODAY AND TOMORROW (04/02/20 AND 04/03/20). Get Blood Test (PT/INR) on 04/04/20 and follow up with coumadin clinic/Primary care physician for further instructions. Your Final blood Cultures are pending at the time of discharge. Follow up with your Physician for results. Seek immediate medical attention if your symptoms reoccur or worsen Home Isolation COVID-19 Instructions The following information about Home Isolation is from the CDC Website: https://www.cdc.gov/coronavirus/2019-ncov/hcp/wkekyfbo-melwscm-mwzbrz.html Stay home except to get medical care People who are mildly ill with COVID-19 are able to isolate at home during their illness. You should restrict activities outside your home, except for getting medical care. Do not go to work, school, or public areas. Avoid using public transportation, ride-sharing, or taxis. Separate yourself from other people and animals in your home People: As much as possible, you should stay in a specific room and away from other people in your home. Also, you should use a separate bathroom, if available. Animals: You should restrict contact with pets and other animals while you are sick with COVID-19, just like you would around other people. Although there have not been reports of pets or other animals becoming sick with COVID-19, it is still recommended that people sick with COVID-19 limit contact with animals until more information is known about the virus. When possible, have another member of your household care for your animals while you are sick. If you are sick with COVID-19, avoid contact with your pet, including petting, snuggling, being kissed or licked, and sharing food. If you must care for your pet or be around animals while you are sick, wash your hands before and after you interact with pets and wear a face mask. Call ahead before visiting your doctor If you have a medical appointment, call the healthcare provider and tell them that you have or may have COVID-19. This will help the healthcare providers office take steps to keep other people from getting infected or exposed. Wear a face mask You should wear a face mask when you are around other people (e.g., sharing a room or vehicle) or pets and before you enter a healthcare providers office. If you are not able to wear a face mask (for example, because it causes trouble breathing), then people who live with you should not stay in the same room with you, or they should wear a face mask if they enter your room. Cover your coughs and sneezes Cover your mouth and nose with a tissue when you cough or sneeze. Throw used tissues in a lined trash can. Immediately wash your hands with soap and water for at least 20 seconds or, if soap and water are not available, clean your hands with an alcohol-based hand relationship banker that contains at least 60% alcohol. Clean your hands often Wash your hands often with soap and water for at least 20 seconds, especially after blowing your nose, coughing, or sneezing; going to the bathroom; and before eating or preparing food. If soap and water are not readily available, use an alcohol-based hand relationship banker with at least 60% alcohol, covering all surfaces of your hands and rubbing them together until they feel dry. Soap and water are the best option if hands are visibly dirty. Avoid touching your eyes, nose, and mouth with unwashed hands. Avoid sharing personal household items You should not share dishes, drinking glasses, cups, eating utensils, towels, or bedding with other people or pets in your home. After using these items, they should be washed thoroughly with soap and water. Clean all high-touch surfaces everyday High touch surfaces include counters, tabletops, doorknobs, bathroom fixtures, toilets, phones, keyboards, tablets, and bedside tables. Also, clean any surfaces that may have blood, stool, or body fluids on them. Use a household cleaning spray or wipe, according to the label instructions. Labels contain instructions for safe and effective use of the cleaning product including precautions you should take when applying the product, such as wearing gloves and making sure you have good ventilation during use of the product. Monitor your symptoms Seek prompt medical attention if your illness is worsening (e.g., difficulty breathing).Beforeseeking care, call your healthcare provider and tell them that you have, or are being evaluated for, COVID-19. Put on a face mask before you enter the facility. These steps will help the healthcare providers office to keep other people in the office or waiting room from getting infected or exposed. Ask your healthcare provider to call the local or state health department. Persons who are placed under active monitoring or facilitated self- monitoring should follow instructions provided by their local health department or occupational health professionals, as appropriate. When working with your local health department check their available hours. If you have a medical emergency and need to call 911, notify the dispatch personnel that you have, or are being evaluated for COVID-19. If possible, put on a face mask before emergency medical services arrive. Discontinuing home isolation Patients with confirmed COVID-19 should remain under home isolation precautions until the risk of secondary transmission to others is thought to be low. The decision to discontinue home isolation precautions should be made on a [id number]-[id number] basis, in consultation with healthcare providers and state and local health departments. Coronavirus disease 2019 (COVID-19) is a virus that causes a respiratory illness. It is caused by a coronavirus called 2019 novel coronavirus (2019- nCoV). There are many types of coronavirus. Coronaviruses are a very common cause of bronchitis. They may sometimes cause lung infection(pneumonia). Symptoms can range from mild to severe respiratory illness. These viruses are also foundin some animals. COVID-19 was first found in people in [facility], in late 2019. In 2020, several cases of COVID-19 have been confirmed in the [place] Public health officials are working to find the source. How the virus spreads is not yet fully known. It may be spread through droplets of fluid that a person coughs or sneezes into the air. It may be spread if you touch a surface with virus on it, such as a handle or object, and then touch your mouth. What are the symptoms of COVID-19? Some people have no symptoms or mild symptoms. Symptoms may appear 2 to 14 days after contact with the virus. Symptoms can include: Fever Coughing Trouble breathing What are possible complications from COVID-19? In many cases, this virus can cause infection (pneumonia) in both lungs. In some cases, this can cause . How is COVID-19 diagnosed? Your healthcare provider will ask about your symptoms. He or she will also ask about your recent travel and contact with sick people. Testing for the virus is only done through the CDC. If yourhealthcare provider thinks you may have COVID- 19, he or she will work with your local health department and the CDC on testing. Follow all instructions from your healthcare provider. COVID-19 is diagnosed by: Nasal and throat swab. A cotton-tipped swab is wiped inside your nose or throat. This is done to check for viruses in your nasal mucus. Sputum culture. A small sample of mucus coughed from your lungs (sputum) is collected if you have a cough. It is checked for the virus. How is COVID-19 treated? There is currently no medicine to treat the virus. Treatment is done to help your body while it fights the virus. This is known as supportive care. Supportive care may include: Pain medicine. These include acetaminophen and ibuprofen. They are used to help ease pain and reduce fever. Bed rest. This helps your body fight the illness. For severe illness, you may need to stay in the hospital. Care during severe illness may include: IV (intravenous) fluids.These are given through a vein to help keep your body hydrated. Oxygen. Supplemental oxygen or ventilation with a breathing machine (ventilator) may be given. This is done to keep enough oxygen in your body. Are you at risk for COVID-19? If youve been to a place where people have been sick with this virus, you are at risk for infection. You are at risk if you: Recently traveled to an affected area Had contact with a sick person who recently traveled to this area Had contact with a person who was diagnosed with COVID-19 How can COVID-19 be prevented? There is no vaccine yet. The best prevention is to not have contact with the virus. The CDC advises that people should not travel to areas where there are COVID-19 outbreaks right now for any reason that is not urgent. To help prevent spreading the infection, wash your hands often, or use an alcohol-basedhand relationship banker. If you are in an area with COVID-19: Wash your hands often. Or use an alcohol-based hand relationship banker often. Only touch your eyes, nose, or mouth with clean hands. Dont have contact with people who are sick. Follow local instructions about being in public. For example, you may be told to not use public transport for a period of time. Stay away from markets that have live or animals. Wash your hands after touching any animals. Don't touch animals that may be sick. Dont share eating or drinking tools with sick people. Dont kiss someone who is sick. Clean surfaces often with disinfectant. If you were in an area with COVID-19 in the last 14 days: Call your healthcare provider. He or she can talk with local health staff to see what action may be needed. Follow all instructions from your provider. Take your temperature every morning and evening for at least 14 days. This is to check for fever. Keep a record of the readings. Keep watch for symptoms of the virus. Tell your provider right away if you have symptoms. If you were in an area with COVID-19 and have a fever or other symptoms: Dont panic. Keep in mind that other illnesses can cause similar symptoms. Stay away from work, school, and public places. Limit physical contact with family members. Don't kiss anyone or share eating or drinking utensils. Clean surfaces you touch with disinfectant. This is to help prevent the virus from spreading. Call your healthcare provider. Explain that you have been exposed to COVID-19 and have symptoms. Do this before going to any hospital. Wait for instructions. Keep in mind that healthcare staff may wear protective equipment such as masks, gowns, gloves, and eye protection. You may be put in a separate room. This is to prevent the possible virus from spreading. Tell the healthcare staff about recent travel. This includes local travel on public transport. Staff may need to find other people you have been in contact with. Follow all instructions the healthcare staff give you. If you have been diagnosed with COVID-19 Follow all instructions from your healthcare provider. Dont leave your home, except to get medical care. Call your healthcare providers office before going. They can prepare and give you instructions. This will help prevent the virus from spreading. Dont go to work, school, or public areas. Dont use public transport or taxis. Stay away from other people in your home. Have them wear face masks around you. Dont share household items or food. Wear a face mask if you can. This includes at home or in a medical facility. Cover your face with a tissue when you cough or sneeze. Throw the tissue away. Wash your hands. Wash your hands often. Caregivers should: Follow all instructions from healthcare staff. Wear a face mask and protective clothing as advised. Wash hands often. Keep track of the sick persons symptoms. Clean surfaces, fabrics, and laundry thoroughly. Keep other people away from the sick person. When to call your healthcare provider Call your healthcare provider: If youve recently traveled and have symptoms If you have been diagnosed with COVID-19 and your symptoms are worse To learn more To find out more about COVID-19, visit the CDC website at www.cdc.gov/coronavirus/2019-ncov/index.html. 5300-8484 [employer]. [address] [place] [address], [place] [address]. All rights reserved. This information is not intended as a substitute for professional medical care. Always follow your healthcare professional's instructions. This information has been adapted from [employer] Pending Studies at Discharge: Yes Studies:: Blood Cultures Stand-Alone Forms: My [facility], Smoking Cessation Medications and DC Order Prescriptions: Continued isosorbide dinitrate 10 mg tablet 10 mg PO BID RF: 0 amlodipine 5 mg tablet 5 mg PO QAM RF: 0 metoprolol succinate 25 mg tablet extended release 24 hr 12.5 mg PO QDD RF: 0 finasteride 5 mg Tablet 5 mg PO QDL RF: 0 omega 2-ddd-hhe-fish oil [Fish Oil] 1,000 mg (120 mg-180 mg) Capsule 1 cap PO QDL RF: 0 Ocuvite Adult 50 Plus 250-5-1 mg Capsule 1 cap PO QAM RF: 0 quetiapine 25 mg tablet 25 mg PO HS RF: 0 loratadine 10 mg Tablet 10 mg PO DAILY PRN (Reason: Allergy Symptoms) RF: 0 Arnuity Ellipta 100 mcg/actuation blister with device 1 inh inhalation DAILY RF: 0 furosemide 40 mg Tablet 20 mg PO QAM RF: 0 warfarin 7.5 mg Tablet 7.5 mg PO TUSA RF: 0 aspirin [Aspirin Low Dose] 81 mg Tablet,Delayed Release (Dr/Ec) 81 mg PO QAM RF: 0 levothyroxine 50 mcg Tablet 50 mcg PO DAILY RF: 0 warfarin 5 mg Tablet 5 mg PO SUMOWETHFR RF: 0 losartan 25 mg Tablet 25 mg PO BID RF: 0 eplerenone [Inspra] 25 mg Tablet 12.5 mg PO QAM RF: 0 rosuvastatin 40 mg Tablet 40 mg PO QDD RF: 0 coenzyme Q10 100 mg Tablet 100 mg PO QDL RF: 0 Discharge Orders: Discharge Order (Routine); Ordered 04/02/20 Ordered By: Cruz Gomez/Other Patient Handouts: A1C Admission Data Admit Date/Time: 03/30/20 16:44 Attending Provider: Cruz Iglesias Admit Provider: Lolita Ortega Primary Care Provider: Laura Mcmahon Other Providers: Lolita Ortega ; Cameron Sanchez Other Interventions: Discharge Summary Assessment (RN) Last Done: 04/02/20 13:20
== END 2020-04-02 15:00 | disposition home health service (06) | DRG 177 ==
LOC: ED 12:56 → 2S 16:44 → SUATTDRO 16:44 → 2S 18:44